=== PATIENT | female | born 1980 | race Caucasian/White ===

== ENCOUNTER → 2017-11-06 13:31 | Outpatient (CLI) | payer MEDICAID, SELFPAY ==
[2017-11-09 17:25] LABS: Neisseria gonorrhoeae, NAA Negative (Negative)
== END ==
PROVIDERS: PCP Nurse Practitioner Obstetrics & Gynecology; Visit Provider Nurse Practitioner Obstetrics & Gynecology
DX: N89.8 Other specified noninflammatory disorders of vagina (principal)
CPT/HCPCS: 87491; 87591

== ENCOUNTER → 2017-11-17 09:04 | Outpatient (CLI) | payer MEDICAID, SELFPAY | PROVIDERS: Visit Provider Nurse Practitioner Obstetrics & Gynecology | DX: A59.01 Trichomonal vulvovaginitis (principal) | CPT/HCPCS: 87491 ==

== ENCOUNTER 2017-12-03 13:48 | Emergency (ER) | payer MEDICAID, SELFPAY ==
[2017-12-03 14:07] VITALS: BP 124/88; PULSE 130; RESP 22; TEMP 37; O2SAT 99; BMI 46.5
[2017-12-03 14:20] VITALS: BP 146/112; PULSE 122; RESP 20; TEMP 36.7; O2SAT 98; BMI 46.5
--- NOTE | 2017-12-03 14:25 | XR_ITS ---
XR chest 2V COMPARISON: PA and lateral chest 12/04/2014 HISTORY: Shortness of breath TECHNIQUE: PA and lateral chest FINDINGS: The lung felton are well expanded and appear clear of infiltrate. The cardiac silhouette and vascularity are normal. There is no pleural fluid. IMPRESSION: Negative chest
--- NOTE | 2017-12-03 14:37 | PC.NURSE ---
TO RADIOLOGY PER W/C.
[2017-12-03 14:41] LABS: Basophils % 0.4 % (0.1-2.0); Eosinophils # 0.2 K/mm3 (0.0-0.4); Eosinophils % 2.1 % (0.1-12.0); Hematocrit 44.7 % (37.0-47.0); Hemoglobin 14.5 g/dL (12.2-16.2); Lymphocytes # 1.9 K/mm3 (0.7-4.5); Lymphocytes % 16.4 K/mm3 (10-50); Mean Corpuscular HGB Conc 32.4 g/dL (31.8-35.4); Mean Corpuscular Hemoglobin 29.8 pg (27.0-31.2); Mean Platelet Volume 7.8 fl (7.4-10.4); Monocytes # 0.4 K/mm3 (0.1-1.0); Monocytes % 3.7 % (1.7-9.3); Neutrophils # 8.8 K/mm3 (1.8-7.8); Neutrophils % 77.5 % (37.0-80.0); Platelet Count 287 K/mm3 (142-424); Red Blood Count 4.86 M/mm3 (4.20-5.40); Red Cell Distribution Width 12.7 % (11.5-17.5); White Blood Count 11.3 K/mm3 (4.8-10.8)
[2017-12-03 14:56] LABS: Alanine Aminotransferase 31 U/L (12-78); Albumin Level 3.5 gm/dL (3.4-5.0); Albumin/Globulin Ratio 0.7 (1.1-1.8); Alkaline Phosphatase 63 U/L (46-116); Anion Gap 14.9 mEq/L (5-15); Aspartate Amino Transferase 14 U/L (15-37); Bilirubin,Total 0.2 mg/dL (0.2-1.0); Blood Urea Nitrogen 5 mg/dL (7-18); Calcium 9.2 mg/dL (8.5-10.1); Carbon Dioxide 27 mmol/L (21.0-32.0); Chloride 103 mmol/L (98-107); Creatinine Clearance Estimated 103 mL/min (0-300); Creatinine,Serum 0.67 mg/dL (0.55-1.02); Estimated Glomerular Filt Rate 99 ml/min (>60); GFR (African American) 120 ML/MIN (>60); Glucose 171 mg/dL (74-106); Potassium 3.9 mmoL/L (3.5-5.1); Sodium 141 mmol/L (136-145); Total Protein,Serum 8.5 gm/dL (6.4-8.2)
[2017-12-03 15:33] LABS: CKMB Relative Index 1.4 U/L (0-4.0); Creatine Kinase 63 U/L (26-192); Creatine Kinase MB 0.9 mg/ml (0.0-3.6); Troponin I < 0.02 ng/ml (0.00-0.06)
[2017-12-03 15:48] VITALS: BP 122/88; PULSE 90; RESP 20; O2SAT 98
--- NOTE | 2017-12-03 15:55 | HMH.EDSOB ---
ED Disposition Clinical Impression: Palpitations Disposition: Home, Self-Care Condition on Discharge: Good Instructions: DI for Palpitations Additional Instructions: Please take the metoprolol as instructed, 100 mg daily. Follow-up with agricultural engineer, Dr. John Monteiro, within the next 2 days. Referrals: Pascual Lynch MD [Primary Care Provider] - Jose E Monteiro MD [Staff Physician] - Time of Disposition: 15:55 - Critical Care Critical Care Time: No Attestation: On 12/03/17, the high probability of a clinically significant, sudden or life threatening deterioration of the following system(s) required my full and direct attention, intervention and personal management. The time I documented below is in addition to time spent performing reported procedures but includes the following listed in this critical care notation. Medical Decision Making - Medical Records Medical records reviewed: Yes: I reviewed the patient's medical records. - Felipe Inquiry Pt receiving controlled substance: No Vital Signs: 12/03/17 14:07 12/03/17 14:20 12/03/17 15:48 Temperature 98.6 F 98.1 F Temperature Source Temporal Artery Scan Oral Pulse Rate Pulse Rate [Right] 130 H 122 H 90 Respiratory Rate 22 20 20 Blood Pressure Blood Pressure [Right Arm] 124/88 146/112 122/88 Blood Pressure Mean [Right Arm] 100 123 99 Blood Pressure Source Blood Pressure Source [Right Arm] Automatic Cuff Automatic Cuff Automatic Cuff Blood Pressure Position Blood Pressure Position [Right Arm] Sitting Sitting Sitting 02 Sat by Pulse Oximetry 99 98 98 Oxygen Delivery Method Room Air Room Air Room Air 12/03/17 16:32 Temperature 98.6 F Temperature Source Oral Pulse Rate 88 Pulse Rate [Right] Respiratory Rate 18 Blood Pressure 153/88 Blood Pressure [Right Arm] Blood Pressure Mean [Right Arm] Blood Pressure Source Automatic Cuff Blood Pressure Source [Right Arm] Blood Pressure Position Sitting Blood Pressure Position [Right Arm] 02 Sat by Pulse Oximetry Oxygen Delivery Method Room Air - Lab Data Lab results reviewed: Yes: I reviewed the patient's lab results. Lab Results 12/03/17 14:30: WBC 11.3 H, RBC 4.86, Hgb 14.5, Hct 44.7, MCV 92.0, MCH 29.8, MCHC 32.4, RDW 12.7, Plt Count 287, MPV 7.8, Neut % (Auto) 77.5, Lymph % (Auto) 16.4, [facility] % (Auto) 3.7, Eos % (Auto) 2.1, Baso % (Auto) 0.4, Neut # (Auto) 8.8 H, Lymph # (Auto) 1.9, [facility] # (Auto) 0.4, Eos # (Auto) 0.2, Baso # (Auto) 0.0 12/03/17 14:30: Sodium 141, Potassium 3.9, Chloride 103, Carbon Dioxide 27, Anion Gap 14.9, BUN 5 L, Creatinine 0.67, Estimated Creat Clear 103, Estimated GFR 99, Est GFR ( Amer) 120, Glucose 171 H, Calcium 9.2, Total Bilirubin 0.2, AST 14 L, ALT 31, Alkaline Phosphatase 63, Total Protein 8.5 H, Albumin 3.5, Globulin 5.0 H, Albumin/Globulin Ratio 0.7 L 12/03/17 14:50: Total Creatine Kinase 63, CK-MB (CK-2) 0.9, CK-MB (CK-2) Rel Index 1.4, Troponin I < 0.02 Result diagrams: 12/03/17 14:30 12/03/17 14:30 Orders (Tests/Meds): ED MEDICATIONS Discontinued Medications Generic Name Dose Route Start Last Admin Trade Name Fazalq PRN Reason Stop Dose Admin Sodium Chloride 1,000 mls @ 999 mls/hr 12/03/17 14:30 12/03/17 14:32 Sod Chlor 0.9% 1000ml Bag IV 12/03/17 15:30 999 mls/hr .Q1H1M SHAGUFTA Administration Metoprolol Tartrate 1.25 mg 12/03/17 15:31 12/03/17 16:26 Metoprolol Tartrate 5mg/5ml Vial IV 12/03/17 15:32 Not Given ONCE ONE - Radiology Data #1 Image(s): Chest Image Reviewed: Yes I reviewed the patient's radiology results, Yes I reviewed the patient's radiology image Preliminary Findings: Normal/NAD - ECG Data Tracing #1 I reviewed this ECG and interpreted as documented below: ECG normal with no acute: arrhythmias, ischemia, conduction abnormalities, chamber hypertrophy Normal Sinus Rhythm: No Resp/SOB HPI - General Chief Complaint: Shortness of Breath/Dyspnea Stated Complai
[2017-12-03 16:32] VITALS: BP 153/88; PULSE 88; RESP 18; TEMP 37; O2SAT 96
== END 2017-12-03 16:34 | disposition home or self-care (01) ==
LOC: UTC 13:52 → ER 14:13
PROVIDERS: Emergency Provider Emergency Medicine; Family Provider Internal Medicine; PCP Nurse Practitioner Obstetrics & Gynecology
DX: R00.2 Palpitations (principal); J45.909 Unspecified asthma, uncomplicated; F41.8 Other specified anxiety disorders; I10 Essential (primary) hypertension
CPT/HCPCS: 71046; 80053; 82550; 82553; 84484; 85025; 93005; 96365; 99283

== ENCOUNTER → 2017-12-17 07:49 | Outpatient (CLI) | payer MEDICAID, SELFPAY ==
--- NOTE | 2017-12-17 07:53 | CA_ITS ---
PROCEDURE: 2-D M-mode and color Doppler study INDICATIONS FOR THE TEST: Chest pain X COPD Heart Murmur Tobacco SmokingEX Palpitations FatigueX Syncope Edema Hypertension Diabetes Mellitus Rheumatic Fever SOBXDOE ObesityXHyperlipidemia Family History HD Additional History TDS OBESITY PATIENT INFORMATION HEIGHT: 65 WEIGHT:279 GENDER: Female B/P:149/88 2-D/M-MODE INTERPRETATION: 2-D MEASUREMENTS OBSERVED VALUES IN CMS Right Ventricular Dimension (RVDd) 2.5 Interventricular Septum (Thickness)(IVsd) 1.1 Left Ventricular Internal Dimensions(LVIDd) 4.4 Left Ventricular Posterior Wall (Thickness)(LVPWd) 1.1 Aortic Root 3.1 Aortic Cusp Separation 2.0 Left Atrial Dimensions (LAD) 2.5 2D 1. Left atrium is normal size, left ventricle is normal size, left ventricle wall thickness is upper limit of normal, visually estimated ejection fraction 55% with no obvious regional wall motion abnormality. 2. The right atrium and right ventricle are normal size and contractility. 3. The aortic, mitral and tricuspid valvular grossly normal. 4. The pulmonic valve is poorly visualized. 5. No significant pericardial effusion noted. DOPPLER INTERROGATION: Doppler interrogation of the aortic, mitral and tricuspid valvular presence of mild mitral and tricuspid regurgitation, tricuspid and jet velocity insufficient for calculation of the right ventricular systolic pressure, diastolic parameters are normal. CONCLUSION: 1. Normal left ventricular size, preserved left ventricular systolic function, visually estimated ejection fraction 55% no obvious regional wall motion abnormality, diastolic parameters are normal. 2. Mild mitral and tricuspid regurgitation 3. No significant pericardial effusion noted.
== END ==
PROVIDERS: Family Provider Internal Medicine; PCP Internal Medicine; Visit Provider Internal Medicine
DX: R07.89 Other chest pain (principal); R00.0 Tachycardia, unspecified
CPT/HCPCS: 93017; 93306

== ENCOUNTER → 2017-12-22 12:29 | Outpatient (REF) | payer MEDICAID, SELFPAY ==
[2017-12-22 13:42] LABS: Alanine Aminotransferase 35 U/L (12-78); Albumin Level 3.6 gm/dL (3.4-5.0); Albumin/Globulin Ratio 0.9 (1.1-1.8); Alkaline Phosphatase 59 U/L (46-116); Anion Gap 14.5 mEq/L (5-15); Aspartate Amino Transferase 27 U/L (15-37); Bilirubin,Total 0.5 mg/dL (0.2-1.0); Blood Urea Nitrogen 11 mg/dL (7-18); Carbon Dioxide 26 mmol/L (21.0-32.0); Chloride 103 mmol/L (98-107); Chol/HDL Ratio 4.6 (1-3.5); Cholesterol 199 mg/dL (140-200); Creatinine,Serum 0.63 mg/dL (0.55-1.02); Estimated Glomerular Filt Rate 106 ml/min (>60); GFR (African American) 129 ML/MIN (>60); Globulin 4.1 gm/dl (1.3-3.2); Glucose 122 mg/dL (74-106); HDL Cholesterol 43 mg/dL (29-89); LDL Cholesterol 132 mg/dL (0-130); Potassium 4.5 mmoL/L (3.5-5.1); Sodium 139 mmol/L (136-145); Total Protein,Serum 7.7 gm/dL (6.4-8.2); Triglycerides 120 mg/dL (30-200); VLDL Cholesterol 24 mg/dL (0-40)
== END ==
LOC: LAB 12:29
PROVIDERS: Visit Provider Internal Medicine
DX: I10 Essential (primary) hypertension (principal); F41.9 Anxiety disorder, unspecified; K21.9 Gastro-esophageal reflux disease without esophagitis; E66.01 Morbid (severe) obesity due to excess calories; F41.0 Panic disorder [episodic paroxysmal anxiety]
CPT/HCPCS: 80053; 80061

== ENCOUNTER → 2018-01-04 08:39 | Outpatient (CLI) | payer MEDICAID, SELFPAY ==
--- NOTE | 2018-01-04 08:41 | FL_ITS ---
FL barium swallow COMPARISON: Upper GI series 06/03/2007 HISTORY: Epigastric pain and discomfort, clinical suspicion of possible hiatal hernia TECHNIQUE: Fluoroscopy while drinking barium FINDINGS: The swallowing function and esophageal motility are normal. Spot films of the cervical esophagus during the active swallowing show no abnormality. There is no hiatal hernia or reflux seen. There was delay in emptying of the lower third of the esophagus with the patient in supine position which did empty after raising the fluoroscopic table. There was no GE reflux seen during the exam. Fluoroscopic time was 2 minutes and 24 seconds. IMPRESSION: No evidence of hiatal hernia or GE reflux, somewhat decreased primary peristalsis lower third of the esophagus with the patient in supine position
== END ==
PROVIDERS: Family Provider Internal Medicine; PCP Internal Medicine; Visit Provider Internal Medicine
DX: R06.02 Shortness of breath (principal); I51.9 Heart disease, unspecified; R00.0 Tachycardia, unspecified; R07.9 Chest pain, unspecified; I10 Essential (primary) hypertension; E66.9 Obesity, unspecified
CPT/HCPCS: 74220

== ENCOUNTER → 2018-01-08 15:55 | Outpatient (CLI) | payer MEDICAID, SELFPAY ==
[2018-01-08 17:01] LABS: Anion Gap 14.9 mEq/L (5-15); Blood Urea Nitrogen 10 mg/dL (7-18); Carbon Dioxide 29 mmol/L (21.0-32.0); Chloride 99 mmol/L (98-107); Creatinine,Serum 0.64 mg/dL (0.55-1.02); Estimated Glomerular Filt Rate 104 ml/min (>60); GFR (African American) 126 ML/MIN (>60); Glucose 147 mg/dL (74-106); Potassium 3.9 mmoL/L (3.5-5.1); Sodium 139 mmol/L (136-145)
== END ==
PROVIDERS: Visit Provider Internal Medicine
DX: I10 Essential (primary) hypertension (principal)
CPT/HCPCS: 36415; 80048

== ENCOUNTER → 2018-08-16 09:32 | Outpatient (CLI) | payer MEDICAID, SELFPAY ==
[2018-08-16 10:10] LABS: Basophils # 0.1 K/mm3 (0-0.2); Basophils % 0.5 % (0.1-2.0); Eosinophils # 0.1 K/mm3 (0.0-0.4); Eosinophils % 0.7 % (0.1-12.0); Hematocrit 40.6 % (37.0-47.0); Hemoglobin 12.9 g/dL (12.2-16.2); Lymphocytes # 2.2 K/mm3 (0.7-4.5); Lymphocytes % 13.2 % (10-50); Mean Corpuscular HGB Conc 31.7 g/dL (31.8-35.4); Mean Corpuscular Hemoglobin 29.1 pg (27.0-31.2); Mean Corpuscular Volume 91.9 fl (81-99); Mean Platelet Volume 7.3 fl (7.4-10.4); Monocytes # 0.6 K/mm3 (0.1-1.0); Monocytes % 3.5 % (1.7-9.3); Neutrophils # 13.4 K/mm3 (1.8-7.8); Neutrophils % 82.1 % (37.0-80.0); Platelet Count 291 K/mm3 (142-424); Red Blood Count 4.42 M/mm3 (4.20-5.40); Red Cell Distribution Width 13.1 % (11.5-17.5); White Blood Count 16.3 K/mm3 (4.8-10.8)
[2018-08-16 10:37] LABS: MANUAL DIFFERENTIAL MANUAL DIFFERENTIAL (MANUAL DIFF)
[2018-08-16 11:16] LABS: Eosinophils % 2 % (0-3); Lymphocytes % 14 % (10-50); Monocytes % 4 % (2-9); Neutrophils % 80 % (42-76); Platelet Estimate Normal; RBC Morphology Normal; Total Cells Counted 100
[2018-08-16 11:26] LABS: Alanine Aminotransferase 18 U/L (12-78); Albumin Level 3.2 gm/dL (3.4-5.0); Albumin/Globulin Ratio 0.8 (1.1-1.8); Alkaline Phosphatase 62 U/L (46-116); Anion Gap 14.6 mEq/L (5-15); Aspartate Amino Transferase 7 U/L (15-37); Bilirubin,Total 0.4 mg/dL (0.2-1.0); Blood Urea Nitrogen 10 mg/dL (7-18); Calcium 8.5 mg/dL (8.5-10.1); Carbon Dioxide 24 mmol/L (21.0-32.0); Chloride 103 mmol/L (98-107); Creatinine,Serum 0.63 mg/dL (0.55-1.02); Estimated Glomerular Filt Rate 106 ml/min (>60); GFR (African American) 128 ML/MIN (>60); Globulin 4.2 gm/dl (1.3-3.2); Glucose 134 mg/dL (74-106); Potassium 4.6 mmoL/L (3.5-5.1); Sodium 137 mmol/L (136-145); Thyroid Stimulating Hormone 3.62 uIU/ml (0.358-3.740); Total Protein,Serum 7.4 gm/dL (6.4-8.2)
== END ==
PROVIDERS: Visit Provider Internal Medicine
DX: Z00.01 Encounter for general adult medical examination with abnormal findings (principal); K21.9 Gastro-esophageal reflux disease without esophagitis; F41.9 Anxiety disorder, unspecified; I10 Essential (primary) hypertension
CPT/HCPCS: 36415; 80053; 84443; 85007; 85025

== ENCOUNTER → 2018-11-15 15:53 | Outpatient (CLI) | payer BC, SELFPAY | PROVIDERS: PCP Internal Medicine; Visit Provider Internal Medicine | DX: G47.10 Hypersomnia, unspecified (principal); G47.30 Sleep apnea, unspecified; I10 Essential (primary) hypertension; R06.83 Snoring; E66.9 Obesity, unspecified | CPT/HCPCS: 95806 ==

== ENCOUNTER → 2019-02-07 10:34 | Outpatient (CLI) | payer BC, SELFPAY ==
[2019-02-07 11:49] LABS: Basophils # 0.1 K/mm3 (0-0.2); Basophils % 0.5 % (0.1-2.0); Eosinophils # 0.1 K/mm3 (0.0-0.4); Eosinophils % 0.8 % (0.1-12.0); Hematocrit 39.7 % (37.0-47.0); Hemoglobin 13.3 g/dL (12.2-16.2); Lymphocytes # 2.4 K/mm3 (0.7-4.5); Lymphocytes % 19.9 % (10-50); Mean Corpuscular HGB Conc 33.4 g/dL (31.8-35.4); Mean Corpuscular Volume 89.6 fl (81-99); Mean Platelet Volume 7.5 fl (7.4-10.4); Monocytes # 0.4 K/mm3 (0.1-1.0); Monocytes % 3.7 % (1.7-9.3); Neutrophils # 8.9 K/mm3 (1.8-7.8); Neutrophils % 75.1 % (37.0-80.0); Platelet Count 274 K/mm3 (142-424); Red Blood Count 4.44 M/mm3 (4.20-5.40); Red Cell Distribution Width 12.5 % (11.5-17.5); White Blood Count 11.9 K/mm3 (4.8-10.8)
[2019-02-07 12:39] LABS: Alanine Aminotransferase 24 U/L (12-78); Albumin Level 3.5 gm/dL (3.4-5.0); Albumin/Globulin Ratio 0.9 (1.1-1.8); Alkaline Phosphatase 65 U/L (46-116); Anion Gap 17.3 mEq/L (5-15); Aspartate Amino Transferase 12 U/L (15-37); Bilirubin,Total 0.7 mg/dL (0.2-1.0); Blood Urea Nitrogen 9 mg/dL (7-18); Carbon Dioxide 25 mmol/L (21.0-32.0); Chloride 101 mmol/L (98-107); Cholesterol 196 mg/dL (140-200); Creatinine,Serum 0.58 mg/dL (0.55-1.02); Estimated Glomerular Filt Rate 116 ml/min (>60); GFR (African American) 141 ML/MIN (>60); Glucose 118 mg/dL (74-106); HDL Cholesterol 39 mg/dL (29-89); LDL Cholesterol 126 mg/dL (0-130); Potassium 4.3 mmoL/L (3.5-5.1); Sodium 139 mmol/L (136-145); Total Protein,Serum 7.5 gm/dL (6.4-8.2); Triglycerides 155 mg/dL (30-200); VLDL Cholesterol 31 mg/dL (0-40)
== END ==
PROVIDERS: Visit Provider Internal Medicine
DX: F41.9 Anxiety disorder, unspecified (principal); I10 Essential (primary) hypertension; G47.10 Hypersomnia, unspecified; E66.01 Morbid (severe) obesity due to excess calories
CPT/HCPCS: 36415; 80053; 80061; 83036; 85025

== ENCOUNTER → 2020-02-10 15:58 | Outpatient (CLI) | payer BC, SELFPAY ==
--- NOTE | 2020-02-10 16:13 | ECG_ITS ---
APPROVED REPORT Exam: Resting ECG HR:89 bpm ECG Measurements Heart Rate 89 AXES IA 130 P 56 QRSd 76 QRS -11 QT 344 T 47 QTc 418 <Conclusion> Normal sinus rhythm Incomplete RBBB Otherwise a normal EKG Electronically signed by : Ha Deras, 02/10/2020 16:24:08
== END ==
PROVIDERS: PCP Internal Medicine; Visit Provider Internal Medicine
DX: R00.2 Palpitations (principal); I10 Essential (primary) hypertension
CPT/HCPCS: 93005

== ENCOUNTER → 2020-07-31 13:56 | Outpatient (CLI) | payer BC, MEDICAID, SELFPAY ==
[2020-07-31 14:34] LABS: Basophils # 0.1 K/mm3 (0-0.2); Basophils % 0.3 % (0.1-2.0); Eosinophils # 0.2 K/mm3 (0.0-0.4); Eosinophils % 0.8 % (0.1-12.0); Hematocrit 45.6 % (37.0-47.0); Hemoglobin 14.7 g/dL (12.2-16.2); Lymphocytes # 2.3 K/mm3 (0.7-4.5); Lymphocytes % 10.2 % (10-50); Mean Corpuscular HGB Conc 32.3 g/dL (31.8-35.4); Mean Corpuscular Hemoglobin 29.9 pg (27.0-31.2); Mean Corpuscular Volume 92.5 fl (81-99); Mean Platelet Volume 8.1 fl (7.4-10.4); Monocytes # 0.7 K/mm3 (0.1-1.0); Monocytes % 3.1 % (1.7-9.3); Neutrophils # 19.6 K/mm3 (1.8-7.8); Neutrophils % 85.7 % (37.0-80.0); Platelet Count 304 K/mm3 (142-424); Red Blood Count 4.93 M/mm3 (4.20-5.40); Red Cell Distribution Width 13.2 % (11.5-17.5); White Blood Count 22.9 K/mm3 (4.8-10.8)
[2020-07-31 14:44] LABS: HCG Qualitative, Serum Negative (Negative)
[2020-07-31 14:46] LABS: Chloride 103 mmol/L (98-107); Sodium 139 mmol/L (136-145)
[2020-07-31 14:47] LABS: Potassium 4.4 mmoL/L (3.5-5.1)
[2020-07-31 14:50] LABS: Anion Gap 14.4 mEq/L (5-15); Blood Urea Nitrogen 17 mg/dl (7-17); Calcium 9.1 mg/dl (8.4-10.2); Carbon Dioxide 26 mmol/L (22.0-30.0); Estimated Glomerular Filt Rate 137 ml/min (>60); GFR (African American) 165 ML/MIN (>60); Glucose 137 mg/dl (74-100); MANUAL DIFFERENTIAL MANUAL DIFFERENTIAL (MANUAL DIFF)
[2020-07-31 15:58] LABS: Coronavirus 19 IgG Antibody Negative (Negative); Coronavirus 19 IgM Antibody Negative (Negative)
[2020-07-31 17:25] LABS: Lymphocytes % 15 % (10-50); Monocytes % 8 % (2-9); Neutrophils % 77 % (42-76); Platelet Estimate Normal; RBC Morphology Normal; Total Cells Counted 100
== END ==
PROVIDERS: Visit Provider Nurse Practitioner Obstetrics & Gynecology
DX: Z01.818 Encounter for other preprocedural examination (principal); Z30.09 Encounter for other general counseling and advice on contraception
CPT/HCPCS: 36415; 80048; 84703; 85007; 85025; 86328

== ENCOUNTER 2020-08-02 06:09 | Day surgery (SDC) | payer BC, MEDICAID, SELFPAY ==
[2020-07-29 13:50] VITALS: BMI 43.1
[2020-08-02 06:27] VITALS: BP 149/97; PULSE 85; RESP 18; TEMP 36.2; O2SAT 96
[2020-08-02 06:42] LABS: Basophils # 0.1 K/mm3 (0-0.2); Basophils % 0.5 % (0.1-2.0); Eosinophils # 0.3 K/mm3 (0.0-0.4); Eosinophils % 1.1 % (0.1-12.0); Hematocrit 44.4 % (37.0-47.0); Hemoglobin 14.6 g/dL (12.2-16.2); Lymphocytes # 4.3 K/mm3 (0.7-4.5); Mean Corpuscular HGB Conc 32.8 g/dL (31.8-35.4); Mean Corpuscular Hemoglobin 30.2 pg (27.0-31.2); Mean Platelet Volume 8.2 fl (7.4-10.4); Monocytes # 0.9 K/mm3 (0.1-1.0); Monocytes % 3.8 % (1.7-9.3); Neutrophils # 18.3 K/mm3 (1.8-7.8); Neutrophils % 76.6 % (37.0-80.0); Platelet Count 352 K/mm3 (142-424); Red Blood Count 4.83 M/mm3 (4.20-5.40); Red Cell Distribution Width 13.2 % (11.5-17.5); White Blood Count 23.9 K/mm3 (4.8-10.8)
[2020-08-02 06:49] LABS: MANUAL DIFFERENTIAL MANUAL DIFFERENTIAL (MANUAL DIFF)
--- NOTE | 2020-08-02 07:37 | SUR.PREOP ---
Procedure cancelled/postponed per Dr Lynch, elevated WBC.
[2020-08-02 08:00] LABS: Lymphocytes % 16 % (10-50); Monocytes % 3 % (2-9); Neutrophils % 81 % (42-76); Platelet Estimate Normal; RBC Morphology Normal; Total Cells Counted 100
--- NOTE | 2020-08-02 08:06 | P.PN_ITS ---
Internal Medicine - PN: Subj *Date: 08/02/20 *Time: 08:06 Interval history: She came here today for a bilateral salpingectomy but she has an increased white count. 48 hours ago it was 20,000 and today it is 23,000. She says she has a sinus infection. As result of that we are going to reschedule her surgery and cancel surgery today. She says she is on steroids. Exam Vital signs and Labs for Last 24 Hours: Temp Pulse Resp BP Pulse Ox 97.2 F L 85 18 149/97 H 96 08/02/20 06:27 08/02/20 06:27 08/02/20 06:27 08/02/20 06:27 08/02/20 06:27 Laboratory Results - last 24 hr 08/02/20 06:30: WBC 23.9 H*, RBC 4.83, Hgb 14.6, Hct 44.4, MCV 92.0, MCH 30.2, MCHC 32.8, RDW 13.2, Plt Count 352, MPV 8.2, Neut % (Auto) 76.6, Lymph % (Auto) 18.0, [place] % (Auto) 3.8, Eos % (Auto) 1.1, Baso % (Auto) 0.5, Neut # (Auto) 18.3 H, Lymph # (Auto) 4.3, [place] # (Auto) 0.9, Eos # (Auto) 0.3, Baso # (Auto) 0.1, Total Counted 100, Neutrophils % (Manual) 81 H, Lymphocytes % (Manual) 16, Monocytes % (Manual) 3, Platelet Estimate Normal, RBC Morphology Normal I & O for Last 24 hours: Intake & Output 07/30/20 07/31/20 08/01/20 08/02/20 11:59 11:59 11:59 11:59 Weight 259 lb - Constitutional no acute distress - *Routine HEENT Exam Head: Present: normocephalic Eye: Present: EOMI, PERRL ENT: Present: mucous membranes moist Assessment and Plan (1) Sinus infection Status: Acute Category: Medical Code(s): J32.9 - Chronic sinusitis, unspecified - Assessment and plan all Dx Assessment and Plan for all problems:: Since her white count is quite elevated we will go ahead and cancel her surgery for today. We will plan to reschedule her in a couple of weeks. She says she does have a sinus infection. I will also call her in a Z-Thaddeus as well.
== END 2020-08-02 07:37 ==
PROVIDERS: PCP Internal Medicine; Visit Provider Nurse Practitioner Obstetrics & Gynecology
DX: Z30.2 Encounter for sterilization (principal); J32.9 Chronic sinusitis, unspecified; Z53.8 Procedure and treatment not carried out for other reasons
CPT/HCPCS: 58700; 85007; 85025

== ENCOUNTER → 2020-08-05 14:04 | Outpatient (CLI) | payer BC, MEDICAID, SELFPAY ==
[2020-08-05 15:15] LABS: Basophils # 0.1 K/mm3 (0-0.2); Basophils % 0.4 % (0.1-2.0); Eosinophils # 0.2 K/mm3 (0.0-0.4); Eosinophils % 1.1 % (0.1-12.0); Hematocrit 43.4 % (37.0-47.0); Hemoglobin 14.4 g/dL (12.2-16.2); Lymphocytes # 2.7 K/mm3 (0.7-4.5); Lymphocytes % 14.8 % (10-50); Mean Corpuscular HGB Conc 33.1 g/dL (31.8-35.4); Mean Corpuscular Hemoglobin 30.8 pg (27.0-31.2); Mean Corpuscular Volume 93.1 fl (81-99); Monocytes # 0.5 K/mm3 (0.1-1.0); Monocytes % 2.7 % (1.7-9.3); Neutrophils # 14.7 K/mm3 (1.8-7.8); Neutrophils % 80.9 % (37.0-80.0); Platelet Count 299 K/mm3 (142-424); Red Blood Count 4.67 M/mm3 (4.20-5.40); Red Cell Distribution Width 13.3 % (11.5-17.5); White Blood Count 18.2 K/mm3 (4.8-10.8)
[2020-08-05 15:17] LABS: MANUAL DIFFERENTIAL MANUAL DIFFERENTIAL (MANUAL DIFF)
[2020-08-05 18:29] LABS: Eosinophils % 2 % (0-3); Lymphocytes % 20 % (10-50); Monocytes % 4 % (2-9); Neutrophils % 74 % (42-76); Platelet Estimate Normal; RBC Morphology Normal; Total Cells Counted 100
== END ==
PROVIDERS: Visit Provider Internal Medicine
DX: D72.829 Elevated white blood cell count, unspecified (principal)
CPT/HCPCS: 36415; 85007; 85025

== ENCOUNTER → 2020-08-11 08:55 | Outpatient (CLI) | payer BC, MEDICAID, SELFPAY ==
[2020-08-11 09:39] LABS: Basophils # 0.2 K/mm3 (0-0.2); Basophils % 1.3 % (0.1-2.0); Eosinophils # 0.1 K/mm3 (0.0-0.4); Eosinophils % 0.8 % (0.1-12.0); Hematocrit 44.1 % (37.0-47.0); Hemoglobin 14.6 g/dL (12.2-16.2); Lymphocytes # 1.4 K/mm3 (0.7-4.5); Lymphocytes % 11.1 % (10-50); Mean Corpuscular HGB Conc 33.1 g/dL (31.8-35.4); Mean Corpuscular Volume 93.7 fl (81-99); Mean Platelet Volume 9.3 fl (7.4-10.4); Monocytes # 0.5 K/mm3 (0.1-1.0); Monocytes % 4.4 % (1.7-9.3); Neutrophils # 10.2 K/mm3 (1.8-7.8); Neutrophils % 82.5 % (37.0-80.0); Platelet Count 182 K/mm3 (142-424); Red Blood Count 4.71 M/mm3 (4.20-5.40); Red Cell Distribution Width 14.3 % (11.5-17.5); White Blood Count 12.3 K/mm3 (4.8-10.8)
== END ==
PROVIDERS: Visit Provider Internal Medicine
DX: D72.829 Elevated white blood cell count, unspecified (principal)
CPT/HCPCS: 36415; 85025

== ENCOUNTER → 2020-08-18 16:22 | Outpatient (CLI) | payer BC, MEDICAID, SELFPAY ==
[2020-08-18 16:48] LABS: Basophils # 0.1 K/mm3 (0-0.2); Basophils % 0.7 % (0.1-2.0); Eosinophils # 0.2 K/mm3 (0.0-0.4); Eosinophils % 1.3 % (0.1-12.0); Hematocrit 43.4 % (37.0-47.0); Hemoglobin 14.4 g/dL (12.2-16.2); Lymphocytes # 2.5 K/mm3 (0.7-4.5); Mean Corpuscular HGB Conc 33.2 g/dL (31.8-35.4); Mean Corpuscular Hemoglobin 30.1 pg (27.0-31.2); Mean Corpuscular Volume 90.7 fl (81-99); Mean Platelet Volume 8.3 fl (7.4-10.4); Monocytes # 0.4 K/mm3 (0.1-1.0); Monocytes % 3.1 % (1.7-9.3); Neutrophils # 10.5 K/mm3 (1.8-7.8); Neutrophils % 76.9 % (37.0-80.0); Platelet Count 265 K/mm3 (142-424); Red Blood Count 4.79 M/mm3 (4.20-5.40); White Blood Count 13.6 K/mm3 (4.8-10.8)
== END ==
PROVIDERS: Visit Provider Internal Medicine
DX: D72.819 Decreased white blood cell count, unspecified (principal)
CPT/HCPCS: 36415; 85025

== ENCOUNTER → 2020-08-20 13:08 | Outpatient (CLI) | payer BC, MEDICAID, SELFPAY ==
[2020-08-20 14:35] LABS: Basophils # 0.1 K/mm3 (0-0.2); Basophils % 0.3 % (0.1-2.0); Eosinophils # 0.1 K/mm3 (0.0-0.4); Eosinophils % 0.7 % (0.1-12.0); Hemoglobin 14.4 g/dL (12.2-16.2); Lymphocytes # 2.2 K/mm3 (0.7-4.5); Lymphocytes % 15.4 % (10-50); Mean Corpuscular HGB Conc 32.7 g/dL (31.8-35.4); Mean Corpuscular Volume 91.9 fl (81-99); Mean Platelet Volume 8.4 fl (7.4-10.4); Monocytes # 0.4 K/mm3 (0.1-1.0); Monocytes % 2.9 % (1.7-9.3); Neutrophils # 11.7 K/mm3 (1.8-7.8); Neutrophils % 80.7 % (37.0-80.0); Platelet Count 302 K/mm3 (142-424); Red Blood Count 4.79 M/mm3 (4.20-5.40); Red Cell Distribution Width 13.2 % (11.5-17.5); White Blood Count 14.6 K/mm3 (4.8-10.8)
[2020-08-20 14:59] LABS: Chloride 102 mmol/L (98-107)
[2020-08-20 15:00] LABS: Potassium 4.2 mmoL/L (3.5-5.1); Sodium 136 mmol/L (136-145)
[2020-08-20 15:02] LABS: Blood Urea Nitrogen 10 mg/dl (7-17); Estimated Glomerular Filt Rate 137 ml/min (>60); GFR (African American) 165 ML/MIN (>60)
[2020-08-20 15:03] LABS: Anion Gap 12.2 mEq/L (5-15); Calcium 9.6 mg/dl (8.4-10.2); Carbon Dioxide 26 mmol/L (22.0-30.0); Glucose 163 mg/dl (74-100)
[2020-08-20 15:20] LABS: Coronavirus 19 IgG Antibody Negative (Negative); Coronavirus 19 IgM Antibody Negative (Negative)
[2020-08-20 16:49] LABS: HCG Qualitative, Serum Negative (Negative)
== END ==
PROVIDERS: Visit Provider Nurse Practitioner Obstetrics & Gynecology
DX: Z01.818 Encounter for other preprocedural examination (principal)
CPT/HCPCS: 36415; 80048; 84703; 85025; 86328

== ENCOUNTER 2020-08-23 09:41 | Day surgery (SDC) | payer BC, MEDICAID, SELFPAY ==
[2020-08-20 14:02] VITALS: BMI 43.4
[2020-08-23] VITALS (12 sets, daily range): BP systolic 152–201; BP diastolic 85–107; PULSE 83–105; RESP 12–23; TEMP 36.2–36.4; O2SAT 92–98
--- NOTE | 2020-08-23 11:12 | P.PN_ITS ---
[facility] Anesthesia Checklist - Patient Identification Patient Identification: Arm Band - Structural Data Admitted From: Home Planned Operative Procedure/s: laparoscopic bilateral tubal ligation Consent for Planned Operative Procedure(s) Verified: Yes Verified Documents: Surgical Consent, History and Physical - NPO Status Verified Time NPO: 00:00 - Additional verifications Anesthesia Reactions: No Hx Blood Transfusions: No Blood Transfusion Reaction: No - Airway Assessment C-Spine Mobility Assessed: Yes (mp2) TMJ Mobility Assessed: Yes Dentition: Good Dentition - Neurological Assessment Level of Consciousness: Awake, Alert - Anesthesia Plan Anesthesia Risk discussed: Yes Anesthesia Plan: Verified ASA Class: III Anesthesia Type: General [facility] History I have reviewed the patient's past medical history: Yes Medical History: Reports:: Anxiety, Asthma, Chronic Obstructive Pulmonary Disease (COPD), Depression, Gall Bladder Disease, Hypertension, Lung Disease (germaine-no cpap) Denies:: Cancer, Diabetes Mellitus Type 1, Diabetes Mellitus Type 2, Internal Pacemaker, MRSA, Seizures *Have you ever received a pneumonia vaccine?: No *Have you received a flu vaccine this season?: No Other Medical History: Denies: Blood Transfusion Reaction Anesthesia experience/problems:: nac Laterality Cases: Bilateral: Other Other Surgeries: Yes: Cholecystectomy, . No: Pacemaker Amputation: No Fractures: No - *Social History Smoking Status: Current every day smoker Tobacco Type: cigarettes # Packs/Day (cigarettes): 1 Alcohol Intake: never Alcohol Intake Frequency:: other Substance Use Type: marijuana *Occupational Status:: employed Housing: house Household Members: family *Travel in the last 8 weeks: None - Psychiatric History Pschychiatric History:: Reports:: Anxiety, Depression Family Hx:: Cancer, Diabetes, Alcoholism
--- NOTE | 2020-08-23 12:31 | HMH.OPNOTE ---
Date of procedure: 08/23/20 Pre-op Diagnosis:: Desire for sterilization, removal of IUD Post-op Diagnosis:: Desire for sterilization, removal of IUD Procedure performed:: Laparoscopic bilateral salpingectomy, hysteroscopy, removal of IUD Surgeon:: Pascual Lynch MD PSYCHIATRIC CLINICIAN:: Alex Rucker Anesthesia: GETA Estimated blood loss (mL): 50 Clinical Note:: She is a 40-year-old 1 now para 1 who expressed desire for sterilization. She also wanted her Mirena IUD removed at the time of surgery as well. The risks and benefits as well as irreversibility of bilateral salpingectomy were discussed with the patient prior to surgery. Operative findings:: She had a normal-appearing pelvis with a slightly bulky uterus. Ovaries appeared normal. Tubes appeared normal. The IUD strings were not present and I elected perform a hysteroscopy to see the IUD. The IUD was in the correct position. The strings were completely inside the endometrial cavity. Operative note:: She was taken to the operating room where general anesthesia was found be adequate. She was prepped and draped in normal sterile fashion in the semilithotomy position. I attempted to remove her Mirena IUD and I did not see it. I tried multiple times and was not able to grasp the IUD. The strings were not present. I elected to wait until the end of the case to do a hysteroscopy. A weighted speculum was placed in the vagina and the anterior lip of the cervix was grasped with a tenaculum. I then inserted a Sofia uterine manipulator into the cervical os. The balloon was then insufflated. I changed gloves and injected 10 cc of 0.5% ropivacaine around her umbilicus and made a small incision within the umbilicus. I inserted a Veress needle into the abdominal cavity. The peritoneal cavity was then insufflated with carbon dioxide gas to a pressure of 20 mmHg. I then inserted a 5 millimeter trocar under direct vision. I injected through and through the pubic hairline, made a small incision here and inserted an 8 mm trocar under direct vision. I identified the inferior epigastric artery on the left side, went lateral to these and injected through and through. I then placed a 5 mm trocar here under direct vision. The pelvis and upper abdomen were then inspected and the findings were as previously dictated. I grasped the right tube at the cornua and using harmonic scalpel on coagulation mode I cut through the tube. I then grasped the distal tube and using harmonic scalpel cut along the mesosalpinx. The tube was removed through 8 mm trocar site. This was similarly performed on the patient's left side. She had a small amount of bleeding around the left ovary and I placed a large piece of Surgicel over this after rinsing the pelvis with saline. I then injected 30 cc of 0.5% ropivacaine into the pelvis. After assuring hemostasis the gas was let out of the abdomen and hemostasis was once again assured. The abdomen was then reinsufflated. The secondary trochars were removed under direct vision. The gas was let out her abdomen. The primary trocar was then removed. The 8 mm trocar site was closed deeply with 2-0 Vicryl suture followed by subcuticular 4-0 Monocryl suture. The 5 mm trocar sites were closed with subcuticular 4-0 Monocryl. Sterile dressings were applied. The patient was then placed in the lithotomy position a weighted speculum is placed in the vagina. The anterior lip of the cervix was grasped and Carson dilators used to dilate the cervix to approximately 5 mm. I then inserted a hysteroscope with saline and was able to visualize the IUD. Initially it did not look like there was a string on the IUD. I dilated the cervix to approximately 9 mm and was able to finally remove the IUD with a sponge forcep. The strings were attached to the IUD but they were backwards towards the top of the IUD. The patient tolerated the procedure well and was taken to the recovery room in excellent condit
--- NOTE | 2020-08-23 12:48 | HMH.ANESI ---
[facility] Anesthesia Record Part I Intake, IV Amount: 1,500 Estimated blood loss (mL): 0 Urine output (mL): 0 Blood Pressure: 196/101 SaO2: 92 Pulse Rate: 104 Respiratory Rate: 12 Temperature: 97.5 F Patient is:: Awake, Stable Stable to PACU at:: 12:45
--- NOTE | 2020-08-23 22:25 | HMH.ANESII ---
[facility] Anesthesia Record Part II Discharge Time: 13:14 Destination: Surgical Day Care (OP Surgery) PACU nurse assessment reviewed?: Yes Patient Condition:: Good Anesthesia Complications:: None Swallowing reflex intact?: Yes Cyanosis?: No Blood Pressure: 172/98 Pulse Rate: 83 Temperature: 97.5 F Mental Status: Alert & Oriented Pain level:: 3 Nausea and/or vomitting:: None Intake, IV Amount: 0
== END 2020-08-23 13:58 | disposition home or self-care (01) ==
LOC: OR 09:43
PROVIDERS: PCP Internal Medicine; Visit Provider Nurse Practitioner Obstetrics & Gynecology
PROC: (CPT 58661; principal; 2020-08-23 11:15)
DX: Z30.2 Encounter for sterilization (principal); J44.9 Chronic obstructive pulmonary disease, unspecified; F41.9 Anxiety disorder, unspecified; F32.9 Major depressive disorder, single episode, unspecified; I10 Essential (primary) hypertension; G47.33 Obstructive sleep apnea (adult) (pediatric); Z90.49 Acquired absence of other specified parts of digestive tract; Z72.0 Tobacco use; Z79.899 Other long term (current) drug therapy
CPT/HCPCS: 58661; 96374; J2405; J2710

== ENCOUNTER 2020-09-20 16:04 | Emergency (ER) | payer BC, OTHER, SELFPAY ==
[2020-09-20 17:15] VITALS: BP 145/89; PULSE 82; RESP 18; TEMP 36.6; O2SAT 99; BMI 44.6
--- NOTE | 2020-09-20 17:31 | HMH.EDUTC ---
[facility] Disposition Clinical Impression: Encounter for laboratory testing for COVID-19 virus Disposition: Home, Self-Care Condition on Discharge: Good Instructions: DI for COVID-19 (Suspected or Confirmed ), Coronavirus Disease 2019, Preventing the Spread of Coronavirus Discharge Instructions Additional Instructions: *Monitor Temp, Over the counter Motrin or Tylenol as directed/as needed Tylenol every 4 hours and Motrin every 6 hours (as long as your family doctor has told you that you can take it) for fever or pain. and straight to ER if unable to lower temp less than 101.0 after medication given Follow up IMMEDIATELY for new or worsening symptoms or no Noticeable improvement over the next 48-72 hours. 911 for difficulty breathing or swallowing You were tested for today for COVID19 your test result should be back in the next 24-48 hours, you may call to the [facility] to see if your test results are back in the next 48 hours [phone] [facility] hours are 9am-9pm You was given a handout with instructions for Self Quarantine and Self isolation for while you wait on test results and what to do if they are positive If you are positive the Health Dept will be contacting you also Referrals: Ha Deras [Primary Care Provider] - As needed Forms: Work/School Release Time of Disposition: 17:34 Medical Decision Making - Felipe Inquiry Pt receiving controlled substance: No Felipe was queried for this patient: No Vital Signs: 09/20/20 17:15 Temperature 97.9 F Temperature Source Oral Pulse Rate [Left Brachial] 82 Respiratory Rate 18 Blood Pressure [Right Arm] 145/89 H Blood Pressure Mean [Right Arm] 107 Blood Pressure Source [Right Arm] Automatic Cuff Blood Pressure Position [Right Arm] Sitting 02 Sat by Pulse Oximetry 99 Oxygen Delivery Method Room Air Orders (Tests/Meds): ORDERS Category Date Time Status Covid-19 Nasal PCR ([facility]) Routine Lab 09/20/20 17:14 Ordered [facility] HPI - General Stated complaint: covid test Time Seen by Provider: 09/20/20 17:31 Mode of Arrival: Ambulatory Source of Information: Patient Limitations: No Limitations Description of Symptoms (Recalled from Triage Doc. by RN): COVID TEST D/T EXPOSURE; DENIES SYMPTOMS HEENT Symptoms (Recalled from RN notes): No Resp Symptoms (Recalled from RN notes): No Skin Symptoms (Recalled from RN notes): No MS Symptoms (Recalled from RN notes): No Functional Status (Recalled from RN notes): WNL - History of Present Illness Provider Complaint: Patient state that her boss notified her that she has been exposed to someone at work that recently tested positive for COVID State that she is not having any symptoms but wanted to get tested - Related Data Home Medications Medication Instructions Recorded Confirmed albuterol sulfate 90 mcg/actuation 2 puff INHALATION Q4-6H PRN 11/05/17 09/06/20 aerosol inhaler metoprolol tartrate 100 mg tablet 200 mg PO BID 11/05/17 09/06/20 lorazepam 0.5 mg tablet 1 mg PO DAILY tab 12/05/17 09/06/20 duloxetine 60 mg capsule,delayed 60 mg PO DAILY cap 06/30/20 09/06/20 release Fluticasone/Vilanterol [Breo 1 inh IH DAILY 07/29/20 09/06/20 Ellipta 100-25 Mcg INH] Furosemide [Furosemide 40MG tAB*] 40 tab PO DAILYP PRN 07/29/20 09/06/20 Meclizine HCl [Meclizine 25mg Tab] 25 mg PO TID 07/29/20 09/06/20 Omeprazole [Omeprazole 20mg 20 mg PO DAILY 07/29/20 09/06/20 Capsule] Potassium Chloride [Pot Chlor 10 20 meq PO DAILYP PRN 07/29/20 09/06/20 mEq Tab] Spironolactone [Aldactone 50mg 50 mg PO QAM 07/29/20 09/06/20 Tab] methylPREDNISolone 4 mg PO DIRECTED 07/29/20 09/06/20 [methylPREDNISolone 4mg Tablet] ibuprofen 800 mg tablet 800 mg PO tab 09/06/20 09/06/20 metoprolol succinate 200 mg 200 mg PO tab 09/06/20 09/06/20 tablet,extended release 24 hr potassium chloride 20 mEq 20 meq PO tab 09/06/20 09/06/20 tablet,extended release(part/cryst) Previous Rx's Medication Instructions
[2020-09-20 17:39] VITALS: BP 145/89; PULSE 82; RESP 18; TEMP 36.6; O2SAT 99
== END 2020-09-20 17:40 | disposition home or self-care (01) ==
PROVIDERS: Emergency Provider Nurse Practitioner; PCP Internal Medicine
DX: Z20.822 Contact with and (suspected) exposure to COVID-19 (principal); J44.9 Chronic obstructive pulmonary disease, unspecified; F41.8 Other specified anxiety disorders; I10 Essential (primary) hypertension; F17.210 Nicotine dependence, cigarettes, uncomplicated; Z79.899 Other long term (current) drug therapy
CPT/HCPCS: 99202; G0463; U0003

== ENCOUNTER 2020-10-15 17:59 | Emergency (ER) | payer BC, MEDICAID, SELFPAY ==
[2020-10-15 18:30] VITALS: BP 180/110; PULSE 82; RESP 20; TEMP 36.4; O2SAT 99; BMI 43.2
--- NOTE | 2020-10-15 18:49 | HMH.EDUTC ---
[facility] Disposition Clinical Impression: Exposure to COVID-19 virus Hypertension Qualifiers: Hypertension type: unspecified Qualified Code(s): I10 - Essential (primary) hypertension Disposition: Home, Self-Care Condition on Discharge: Good Instructions: Preventing the Spread of Coronavirus Discharge Instructions Additional Instructions: Drink plenty of fluids. Take tylenol for pain or fever. Return if you begin to have difficulty breathing. Follow up with your regular doctor. GO TO THE ER FOR ANY WORSENING SYMPTOMS Follow up with your primary care physician regarding your blood pressure. Make sure you take you medication once you get home that you have missed today. Referrals: Ha Deras [Primary Care Provider] - Time of Disposition: 18:51 Medical Decision Making - Medical Records Medical records reviewed: No: I reviewed the patient's medical records. - Felipe Inquiry Pt receiving controlled substance: No Vital Signs: 10/15/20 18:30 10/15/20 18:54 Temperature 97.6 F 97.6 F Temperature Source Oral Pulse Rate 82 Pulse Rate [Left Brachial] 82 Respiratory Rate 20 20 Blood Pressure 180/110 H Blood Pressure [Left Arm] 180/110 H Blood Pressure Mean [Left Arm] 133 Blood Pressure Source [Left Arm] Automatic Cuff Blood Pressure Position [Left Arm] Sitting 02 Sat by Pulse Oximetry 99 Oxygen Delivery Method Room Air Orders (Tests/Meds): ORDERS Category Date Time Status Covid-19 Nasal PCR ([facility]) Routine Lab 10/15/20 18:25 Received [facility] HPI - General Stated complaint: Covid Test Time Seen by Provider: 10/15/20 18:49 Mode of Arrival: Ambulatory Source of Information: Patient Limitations: No Limitations Description of Symptoms (Recalled from Triage Doc. by RN): COVID TEST D/T EXPOSURE. C/O COUGH AND HEADACHE HEENT Symptoms (Recalled from RN notes): Yes Resp Symptoms (Recalled from RN notes): Yes Skin Symptoms (Recalled from RN notes): No MS Symptoms (Recalled from RN notes): No Functional Status (Recalled from RN notes): WNL - History of Present Illness Provider Complaint: She states that she was exposed to covid-19 at her job about 5 days ago. She denies any symptoms. - Related Data Home Medications Medication Instructions Recorded Confirmed albuterol sulfate 90 mcg/actuation 2 puff INHALATION Q4-6H PRN 11/05/17 09/06/20 aerosol inhaler metoprolol tartrate 100 mg tablet 200 mg PO BID 11/05/17 09/06/20 lorazepam 0.5 mg tablet 1 mg PO DAILY tab 12/05/17 09/06/20 duloxetine 60 mg capsule,delayed 60 mg PO DAILY cap 06/30/20 09/06/20 release Fluticasone/Vilanterol [Breo 1 inh IH DAILY 07/29/20 09/06/20 Ellipta 100-25 Mcg INH] Furosemide [Furosemide 40MG tAB*] 40 tab PO DAILYP PRN 07/29/20 09/06/20 Meclizine HCl [Meclizine 25mg Tab] 25 mg PO TID 07/29/20 09/06/20 Omeprazole [Omeprazole 20mg 20 mg PO DAILY 07/29/20 09/06/20 Capsule] Potassium Chloride [Pot Chlor 10 20 meq PO DAILYP PRN 07/29/20 09/06/20 mEq Tab] Spironolactone [Aldactone 50mg 50 mg PO QAM 07/29/20 09/06/20 Tab] methylPREDNISolone 4 mg PO DIRECTED 07/29/20 09/06/20 [methylPREDNISolone 4mg Tablet] ibuprofen 800 mg tablet 800 mg PO tab 09/06/20 09/06/20 metoprolol succinate 200 mg 200 mg PO tab 09/06/20 09/06/20 tablet,extended release 24 hr potassium chloride 20 mEq 20 meq PO tab 09/06/20 09/06/20 tablet,extended release(part/cryst) Previous Rx's Medication Instructions Recorded Oxycodone HCl/Acetaminophen 1 tab PO Q4-6H PRN #20 tab 08/23/20 [Percocet 5/325mg tablet] Allergies Allergy/AdvReac Type Severity Reaction Status Date / Time chapito Allergy Unknown Verified 09/06/20 15:11 - Worker's Comp Is this a Worker's Comp case?: No [facility] History - Hepatitis A Screen Drug use history?: No High risk sexual behaviors?: No History of sexually transmitted infection?: No Currently employed?: No Childcare worker?: No Do you
[2020-10-15 18:54] VITALS: BP 180/110; PULSE 82; RESP 20; TEMP 36.4; O2SAT 99
== END 2020-10-15 18:56 | disposition home or self-care (01) ==
PROVIDERS: Emergency Provider Nurse Practitioner Family; PCP Internal Medicine
DX: Z20.822 Contact with and (suspected) exposure to COVID-19 (principal); I10 Essential (primary) hypertension; F41.8 Other specified anxiety disorders; J44.9 Chronic obstructive pulmonary disease, unspecified; F17.210 Nicotine dependence, cigarettes, uncomplicated; Z79.899 Other long term (current) drug therapy
CPT/HCPCS: 99202; G0463; U0003

== ENCOUNTER 2021-03-24 09:04 | Emergency (ER) | payer BC, SELFPAY ==
[2021-03-24 09:16] VITALS: BP 151/89; PULSE 101; RESP 21; TEMP 36.9; O2SAT 98; BMI 41.4
[2021-03-24 09:27] LABS: Apearance,Urine Cloudy (Clear); Color,Urine Dark Yellow (Yellow); PH,Urine 5.5 (5.0-8.5)
[2021-03-24 09:28] LABS: Bilirubin,Urine Negative (Negative); Blood, Urine 3+ (Negative); Glucose,Urine (UA) Negative (Negative); Ketones,Urine TRACE (Negative); Protein,Urine 1+ (Negative); UTC Leukocyte Esterase,Urine 3+ (Negative); UTC Nitrate,Urine Positive (Negative); Urobilinogen,Urine 0.2 EU/dl (0.2)
--- NOTE | 2021-03-24 09:35 | HMH.EDUTC ---
[facility] [place] Disposition Clinical Impression: UTI (urinary tract infection) Qualifiers: Urinary tract infection type: site unspecified Hematuria presence: with hematuria Qualified Code(s): N39.0 - Urinary tract infection, site not specified Sinus infection Qualifiers: Sinusitis location: unspecified location Chronicity: acute Recurrence: non-recurrent Qualified Code(s): J01.90 - Acute sinusitis, unspecified Disposition: Home, Self-Care Condition on Discharge: Good Instructions: Urinary Tract Infection, Sinusitis, DI for Sinusitis Additional Instructions: Drink plenty of fluids. Take tylenol or ibuprofen for pain or fever. Take the medications as directed. Follow up with your regular doctor. GO TO THE ER FOR ANY WORSENING SYMPTOMS The pyridium will make your urine turn orange, this is an expected side effect. It will stain your clothes if it comes into contact with them. Prescriptions: Amoxicillin/Potassium Clav [Augmentin 875-125 Tablet] 1 tab PO Q12H 10 Days #20 tab Transmission Status: Received by [facility] Fluconazole [Diflucan 150mg tab] 150 mg PO ONCE #1 tab Transmission Status: Received by [facility] Phenazopyridine HCl [Pyridium 200mg Tablet] 200 pow PO TID #6 tab Transmission Status: Received by [facility] Referrals: Ha Deras [Primary Care Provider] - Forms: Work/School Release Time of Disposition: 09:55 Medical Decision Making - Medical Records Medical records reviewed: No: I reviewed the patient's medical records. - Felipe Inquiry Pt receiving controlled substance: No Vital Signs: 03/24/21 09:16 03/24/21 09:46 Temperature 98.4 F 98.5 F Temperature Source Oral Pulse Rate 99 H Pulse Rate [Left] 101 H Respiratory Rate 21 22 Blood Pressure 148/90 H Blood Pressure [Right Arm] 151/89 H Blood Pressure Mean [Right Arm] 109 02 Sat by Pulse Oximetry 98 - Lab Data Lab results reviewed: Yes: I reviewed the patient's lab results. Lab Results 03/24/21 09:20: Urine Color Dark yellow, Urine Appearance Cloudy, Urine pH 5.5, Ur Specific [place] 1.020, Urine Protein 1+, Urine Glucose (UA) Negative, Urine Ketones Trace, Urine Blood 3+, Urine Nitrate Positive A, Urine Bilirubin Negative, Urine Urobilinogen 0.2, Ur Leukocyte Esterase 3+ A Orders (Tests/Meds): ED MEDICATIONS Discontinued Medications Generic Name Dose Route Start Last Admin Trade Name Waldo PRN Reason Stop Dose Admin Ceftriaxone Sodium 1 gm 03/24/21 09:38 03/24/21 09:40 Ceftriaxone 1gm Vial IM 03/24/21 09:39 1 gm ONCE ONE Administration Protocol Lidocaine HCl 0 ml 03/24/21 09:38 03/24/21 09:41 Lidocaine 1% 5ml Pf Vial IM 03/24/21 09:39 2.5 ml ONCE ONE Administration ORDERS Category Date Time Status Urine Culture Stat Micro 03/24/21 09:26 Received [facility] [place] HPI - General Stated complaint: lower back pain, abdominal pain Time Seen by Provider: 03/24/21 09:35 Mode of Arrival: Ambulatory Source of Information: Patient Limitations: No Limitations Description of Symptoms (Recalled from Triage Doc. by RN): pt c/o of lower back pain and burning with urination. pt also c/o sinus drainage, pressure and congestion. HEENT Symptoms (Recalled from RN notes): Yes (nasal drainage, congestion and sinus pressure) Resp Symptoms (Recalled from RN notes): No Skin Symptoms (Recalled from RN notes): No MS Symptoms (Recalled from RN notes): No Functional Status (Recalled from RN notes): na - History of Present Illness Provider Complaint: She states that for the past 2 days she has had low back pain, burning with urination, chills and she has felt bad. She has also had sinus congestion and a cough also. - Related Data Home Medications Medication Instructions Recorded Confirmed albuterol sulfate 90 mcg/actuation 2 puff INHALATION Q4-6H PRN 11/05/17 01/13/21 aerosol inhaler metoprolol tartrate 100 mg tablet 200 mg PO BID 11/05/17 01/13/21 lorazepa
[2021-03-24 09:46] VITALS: BP 148/90; PULSE 99; RESP 22; TEMP 36.9
== END 2021-03-24 10:00 | disposition home or self-care (01) ==
PROVIDERS: Emergency Provider Nurse Practitioner Family; PCP Internal Medicine
DX: N30.00 Acute cystitis without hematuria (principal); J01.90 Acute sinusitis, unspecified; J44.9 Chronic obstructive pulmonary disease, unspecified; I10 Essential (primary) hypertension; F41.8 Other specified anxiety disorders; F17.210 Nicotine dependence, cigarettes, uncomplicated
CPT/HCPCS: 81003; 87086; 87088; 87186; 96372; 99202; G0463

== ENCOUNTER 2021-04-19 14:01 | Emergency (ER) | payer BC, SELFPAY ==
[2021-04-19 14:01] VITALS: BP 188/101; PULSE 97; RESP 18; TEMP 36.9; O2SAT 98; BMI 41.5
--- NOTE | 2021-04-19 15:01 | HMH.EDUTC ---
[facility] [place] Disposition Clinical Impression: Encounter for laboratory testing for COVID-19 virus Disposition: Home, Self-Care Condition on Discharge: Good Instructions: DI for COVID-19 (Suspected or Confirmed ), Coronavirus Disease 2019, Preventing the Spread of Coronavirus Discharge Instructions Additional Instructions: *Monitor Temp, Over the counter Motrin or Tylenol as directed/as needed Tylenol every 4 hours and Motrin every 6 hours (as long as your family doctor has told you that you can take it) for fever or pain. and straight to ER if unable to lower temp less than 101.0 after medication given Follow up IMMEDIATELY for new or worsening symptoms or no Noticeable improvement over the next 48-72 hours. 911 for difficulty breathing or swallowing You were tested for today for COVID19 your test result should be back in the next 24-48 hours, you may call to the [facility] to see if your test results are back in the next 48 hours [phone] [facility] hours are 9am-9pm You was given a handout with instructions for Self Quarantine and Self isolation for while you wait on test results and what to do if they are positive If you are positive the Health Dept will be contacting you also Referrals: Ha Deras [Primary Care Provider] - As needed Time of Disposition: 15:04 Medical Decision Making - Felipe Inquiry Pt receiving controlled substance: No Felipe was queried for this patient: No Vital Signs: 04/19/21 14:01 Temperature 98.4 F Temperature Source Oral Pulse Rate [Apical] 97 H Respiratory Rate 18 Blood Pressure [Right Arm] 188/101 H Blood Pressure Mean [Right Arm] 130 Blood Pressure Source [Right Arm] Automatic Cuff Blood Pressure Position [Right Arm] Supine 02 Sat by Pulse Oximetry 98 Oxygen Delivery Method Room Air Orders (Tests/Meds): ORDERS Category Date Time Status Covid-19 Nasal PCR ([facility]) Routine Lab 04/19/21 14:37 Received [facility] [place] HPI - General Stated complaint: covid test Time Seen by Provider: 04/19/21 15:01 Mode of Arrival: Ambulatory Source of Information: Patient Limitations: No Limitations Description of Symptoms (Recalled from Triage Doc. by RN): covid test to return to work HEENT Symptoms (Recalled from RN notes): No Resp Symptoms (Recalled from RN notes): No Skin Symptoms (Recalled from RN notes): No MS Symptoms (Recalled from RN notes): No Functional Status (Recalled from RN notes): na - History of Present Illness Provider Complaint: Patient states that she recently tested positive for COVID States that she has to get retested before she can return to work so she came in to get tested States that her 10 day quarantine is up and she is no longer having any symptoms - Related Data Home Medications Medication Instructions Recorded Confirmed albuterol sulfate 90 mcg/actuation 2 puff INHALATION Q4-6H PRN 11/05/17 01/13/21 aerosol inhaler metoprolol tartrate 100 mg tablet 200 mg PO BID 11/05/17 01/13/21 lorazepam 0.5 mg tablet 1 mg PO DAILY tab 12/05/17 01/13/21 duloxetine 60 mg capsule,delayed 60 mg PO DAILY cap 06/30/20 01/13/21 release Fluticasone/Vilanterol [Breo 1 inh IH DAILY 07/29/20 01/13/21 Ellipta 100-25 Mcg INH] Furosemide [Furosemide 40MG tAB*] 40 tab PO DAILYP PRN 07/29/20 01/13/21 Meclizine HCl [Meclizine 25mg Tab] 25 mg PO TID 07/29/20 01/13/21 Omeprazole [Omeprazole 20mg 20 mg PO DAILY 07/29/20 01/13/21 Capsule] Potassium Chloride [Pot Chlor 10 20 meq PO DAILYP PRN 07/29/20 01/13/21 mEq Tab] Spironolactone [Aldactone 50mg 50 mg PO QAM 07/29/20 01/13/21 Tab] ibuprofen 800 mg tablet 800 mg PO tab 09/06/20 01/13/21 metoprolol succinate 200 mg 200 mg PO tab 09/06/20 01/13/21 tablet,extended release 24 hr potassium chloride 20 mEq 20 meq PO tab 09/06/20 01/13/21 tablet,extended release(part/cryst) Previous Rx's Medication Instructions Recorded Amoxicillin/Potassium Clav 1 tab PO Q12H 10 Days #20 tab 03/24/21 [Augmentin 875-125 Tablet
[2021-04-19 15:18] VITALS: BP 188/101; PULSE 97; RESP 18; TEMP 36.9; O2SAT 98
--- NOTE | 2021-04-20 09:35 | PC.NURSE ---
ATTEMPTED TO CALL PT ABOUT COVID TEST RESULT. NO ANSWER, WILL TRY AGAIN LATER
== END 2021-04-19 15:19 | disposition home or self-care (01) ==
PROVIDERS: Emergency Provider Nurse Practitioner; PCP Internal Medicine
DX: U07.1 COVID-19 (principal); F41.8 Other specified anxiety disorders; J44.9 Chronic obstructive pulmonary disease, unspecified; I10 Essential (primary) hypertension; F17.210 Nicotine dependence, cigarettes, uncomplicated; Z79.899 Other long term (current) drug therapy
CPT/HCPCS: 99202; G0463; U0003

== ENCOUNTER → 2021-07-16 09:36 | Outpatient (CLI) | payer BC, SELFPAY ==
[2021-07-16 10:06] LABS: Hematocrit 45.3 % (37.0-47.0); Hemoglobin 14.3 g/dL (12.2-16.2); Red Blood Count 4.74 M/mm3 (4.20-5.40)
[2021-07-16 10:07] LABS: Basophils # 0.1 K/mm3 (0-0.2); Basophils % 0.6 % (0.1-2.0); Eosinophils # 0.3 K/mm3 (0.0-0.4); Eosinophils % 1.6 % (0.1-12.0); Lymphocytes # 2.1 K/mm3 (0.7-4.5); Mean Corpuscular HGB Conc 31.5 g/dL (31.8-35.4); Mean Corpuscular Hemoglobin 30.1 pg (27.0-31.2); Mean Corpuscular Volume 95.6 fl (81-99); Mean Platelet Volume 8.8 fl (7.4-10.4); Monocytes # 0.4 K/mm3 (0.1-1.0); Monocytes % 2.6 % (1.7-9.3); Neutrophils # 13.2 K/mm3 (1.8-7.8); Neutrophils % 82.2 % (37.0-80.0); Platelet Count 324 K/mm3 (142-424)
[2021-07-16 10:18] LABS: MANUAL DIFFERENTIAL MANUAL DIFFERENTIAL (MANUAL DIFF)
[2021-07-16 10:47] LABS: Chloride 104 mmol/L (98-107); Potassium 4.8 mmoL/L (3.5-5.1); Sodium 138 mmol/L (136-145)
[2021-07-16 10:50] LABS: Alanine Aminotransferase 18 U/L (12-78); Albumin/Globulin Ratio 1.3 (1.1-1.8); Alkaline Phosphatase 78 U/L (38-126); Anion Gap 14.8 mEq/L (5-15); Aspartate Amino Transferase 21 U/L (14-36); Bilirubin,Total 0.4 mg/dl (0.2-1.3); Blood Urea Nitrogen 8 mg/dl (7-17); Carbon Dioxide 24 mmol/L (22.0-30.0); Cholesterol 203 mg/dl (140-200); Estimated Glomerular Filt Rate 176 ml/min (>60); GFR (African American) 213 ML/MIN (>60); Globulin 3.2 g/dL (1.3-3.2); Glucose 143 mg/dl (74-100); Total Protein,Serum 7.2 g/dl (6.3-8.2); Triglycerides 95 mg/dl (30-150); VLDL Cholesterol 19 mg/dL (0-40)
[2021-07-16 10:51] LABS: Calcium 9.2 mg/dl (8.4-10.2); Chol/HDL Ratio 3.7 (1-3.5); HDL Cholesterol 55 mg/dl (40-60)
[2021-07-16 11:02] LABS: Direct LDL Cholesterol 136.64 mg/dL (100-129)
[2021-07-16 11:22] LABS: Lymphocytes % 28 % (10-50); Monocytes % 6 % (2-9); Neutrophils % 66 % (42-76); Platelet Estimate Normal; Total Cells Counted 100
[2021-07-16 12:15] LABS: Free Thyroxine Index 3.6 ug/dL (5.93-13.13); T4 (Thyroxine) 11.6 ug/dl (5.53-11.0); Triiodothryronine (T3) Uptake 31 % (23.5-40.5)
[2021-07-16 12:29] LABS: Thyroid Stimulating Hormone 1.66 uIU/mL (0.465-4.68)
[2021-07-17 07:22] LABS: FSH 17.8 mIU/mL (.); LH 26.6 mIU/mL (.)
== END ==
PROVIDERS: Visit Provider Nurse Practitioner Obstetrics & Gynecology
DX: I10 Essential (primary) hypertension (principal); Z00.00 Encounter for general adult medical examination without abnormal findings; R53.82 Chronic fatigue, unspecified
CPT/HCPCS: 36415; 80053; 80061; 82670; 83001; 83002; 84436; 84443; 84479; 85007; 85025

== ENCOUNTER → 2021-08-03 15:35 | Outpatient (CLI) | payer BC, SELFPAY ==
--- NOTE | 2021-08-03 15:35 | MM_ITS ---
PROCEDURE INFORMATION: Exam: MG Bilateral Screening 3D Mammography Exam date and time: 08/03/2021 3:35 PM Age: 41 years old Clinical indication: Encounter for screening mammogram for malignant neoplasm of breast TECHNIQUE: Imaging protocol: Bilateral screening tomosynthesis and 2D mammography including computer-aided detection (CAD) when performed. COMPARISON: No relevant prior studies available. FINDINGS: MAMMOGRAPHY: Breast composition: The breast tissue is heterogeneously dense, which may obscure small masses. Mass: None. Architectural distortion: None. Calcifications: No suspicious calcifications. Asymmetric density: None. Skin thickening: None. Axillary adenopathy: None. IMPRESSION: No mammographic evidence of malignancy. Annual screening is recommended unless otherwise clinically indicated. ASSESSMENT: BI-RADS Category 1: Negative
== END ==
PROVIDERS: PCP Internal Medicine; Visit Provider Nurse Practitioner Obstetrics & Gynecology
DX: Z12.31 Encounter for screening mammogram for malignant neoplasm of breast (principal)
CPT/HCPCS: 77063; 77067

== ENCOUNTER 2021-08-13 11:38 | Emergency (ER) | payer BC, SELFPAY ==
[2021-08-13 12:30] VITALS: BP 187/104; PULSE 124; RESP 18; TEMP 36.9; O2SAT 98; BMI 39.9
--- NOTE | 2021-08-13 13:11 | HMH.EDUTC ---
[facility] [place] Disposition Clinical Impression: Diarrhea Qualifiers: Diarrhea type: unspecified type Qualified Code(s): R19.7 - Diarrhea, unspecified Disposition: Home, Self-Care Condition on Discharge: Good Instructions: Diarrhea, DI for Acute Abdominal Pain, DI for Nausea -- Adult Additional Instructions: Drink extra fluids with and between meals. If you have difficulty drinking, try very small amounts of water or suck on ice chips. ? Avoid fruit juices, as these do not replace minerals and can actually increase diarrhea. ? Children and adults can use sports drinks to replenish electrolytes. Younger children and infants should use products formulated for children, like oral rehydration solutions. ? Eat food in small amounts and let your stomach recover. ? Get lots of rest. You may feel tired or weak. ? No greasy or fried foods for the next 24-48 hours BRAT diet Bananas Rice Apples and Cum[place] ? Make sure to drink plenty of liquids ? Return if needed ? Straight to ER if any life threatening symptoms ? Zofran as prescribed ? You was given an outpatient order for diarrhea panel, please collect specimen and bring back to outpatient lab then call back to the [facility] or follow up with family doctor for results ? Follow up with family doctor in the next 48-72 hours if no improvement or any worsening of symptoms Prescriptions: Dicyclomine HCl [Bentyl 10mg capsule] 10 mg PO TID PRN #15 cap PRN Reason: Cramping Transmission Status: Received by [facility] Ondansetron [Zofran 4mg ODT] 4 mg PO TIDP PRN #20 tab PRN Reason: Nausea Transmission Status: Received by [facility] Referrals: Ha Deras [Primary Care Provider] - As needed Forms: Work/School Release Time of Disposition: 13:41 Medical Decision Making - Felipe Inquiry Pt receiving controlled substance: No Felipe was queried for this patient: No Vital Signs: 08/13/21 12:30 08/13/21 13:20 08/13/21 13:50 Temperature 98.4 F 98.4 F Temperature Source Oral Pulse Rate 97 H Pulse Rate [Right Brachial] 124 H 97 H Respiratory Rate 18 18 Blood Pressure 157/97 H Blood Pressure [Right Arm] 187/104 H 157/97 H Blood Pressure Mean [Right Arm] 131 117 Blood Pressure Source [Right Arm] Automatic Cuff Automatic Cuff Blood Pressure Position [Right Arm] Sitting Sitting 02 Sat by Pulse Oximetry 98 Oxygen Delivery Method Room Air Orders (Tests/Meds): ED MEDICATIONS Discontinued Medications Generic Name Dose Route Start Last Admin Trade Name Waldo PRN Reason Stop Dose Admin Dicyclomine HCl 10 mg 08/13/21 13:11 08/13/21 13:16 Dicyclomine 10mg Capsule PO 08/13/21 13:12 10 mg ONCE ONE Administration Ondansetron HCl 4 mg 08/13/21 13:11 08/13/21 13:17 Ondansetron 4mg Odt SL 08/13/21 13:12 4 mg ONCE ONE Administration Medical Decision Narrative: Patient states that medication did help and she wanted to go home Discussed transfer to the ED for further work up and evalution and CT if warranted and she advised that she would follow up with her Family Doctor on Sunday if no improvement or return straight to the ER [facility] HPI - General Stated complaint: cough, abd pain Time Seen by Provider: 08/13/21 13:11 Mode of Arrival: Ambulatory Source of Information: Patient Limitations: No Limitations Description of Symptoms (Recalled from Triage Doc. by RN): PATIENT C/O STOMACH CRAMPS, DIARRHEA AND NAUSEA SINCE YESTERDAY HEENT Symptoms (Recalled from RN notes): No Resp Symptoms (Recalled from RN notes): No Skin Symptoms (Recalled from RN notes): No MS Symptoms (Recalled from RN notes): No Functional Status (Recalled from RN notes): WNL - History of Present Illness Provider Complaint: Patient states that she was having nausea, diarrhea and stomach cramps since yesterday States that today she was still having cramping and nausea with diarrhea on and off so she came in to get checked - Related Data Home Medications Medication Instr
[2021-08-13 13:20] VITALS: BP 157/97; PULSE 97
[2021-08-13 13:50] VITALS: BP 157/97; PULSE 97; RESP 18; TEMP 36.9; O2SAT 98
== END 2021-08-13 13:54 | disposition home or self-care (01) ==
PROVIDERS: Emergency Provider Nurse Practitioner; PCP Internal Medicine
DX: R05.1 Acute cough (principal); R19.7 Diarrhea, unspecified; F41.8 Other specified anxiety disorders; I10 Essential (primary) hypertension
CPT/HCPCS: 99202; G0463

== ENCOUNTER → 2021-08-26 16:21 | Outpatient (CLI) | payer BC, SELFPAY | PROVIDERS: PCP Internal Medicine; Visit Provider Nurse Practitioner | DX: Z20.822 Contact with and (suspected) exposure to COVID-19 (principal) | CPT/HCPCS: C9803; U0003; U0005 ==

== ENCOUNTER → 2021-09-19 14:20 | Outpatient (CLI) | payer BC, SELFPAY | PROVIDERS: PCP Internal Medicine; Visit Provider Nurse Practitioner | DX: Z20.822 Contact with and (suspected) exposure to COVID-19 (principal) | CPT/HCPCS: C9803; U0003; U0005 ==

== ENCOUNTER 2021-09-21 08:59 | Emergency (ER) | payer BC, SELFPAY ==
[2021-09-21 09:45] VITALS: BP 149/83; PULSE 82; RESP 16; TEMP 36.8; O2SAT 98; BMI 41.5
--- NOTE | 2021-09-21 10:19 | HMH.EDUTC ---
[facility] [place] Impression: Strep throat, Exposure to COVID-19 virus, Viral syndrome Disposition: Home, Self-Care Condition on Discharge: Good Instructions: DI for Strep Throat, DI for COVID-19 (Suspected or Confirmed ), Preventing the Spread of Coronavirus Discharge Instructions Additional Instructions: Drink plenty of fluids. Take tylenol or ibuprofen for pain or fever. Take the medications as directed. Follow up with your regular doctor. GO TO THE ER FOR ANY WORSENING SYMPTOMS Throw your tooth brush away and get a new one. Quarantine until you know the results of your covid-19 test. If it is positive, the health department should call you and give you further instructions about your length of Quarantine and other things. Notify your school or workplace of your results and follow their instructions regarding return to work/school. If you're only positive for strep throat, then you need to quarantine for 24 hours after starting the antibiotics. Then you would be ok to return to work. But, if the covid-19 test is positive to, then follow the quarantine guidelines for that too. The cough medication (promethazine dm) will make you drowsy, so don't drive or operate heavy machinery after taking it. Prescriptions: Albuterol Sulfate [Albuterol Sulfate Hfa] 2 puffs IH Q6HP PRN 30 Days #1 each PRN Reason: Shortness Of Breath Transmission Status: Received by [facility] Promethazine/Dextromethorphan [Promethazine-Dm Syrup] 5 ml PO Q6HP PRN #240 ml PRN Reason: Cough Transmission Status: Received by [facility] Amoxicillin/Potassium Clav [Augmentin 875-125 Tablet] 1 tab PO Q12H 10 Days #20 tab Transmission Status: Received by [facility] methylPREDNISolone [Medrol] 4 mg PO DIRECTED 6 Days #21 packet Transmission Status: Received by [facility] guaiFENesin [Mucinex 600mg tablet] 1 - 2 tab PO BIDP PRN #30 tab PRN Reason: Congestion Transmission Status: Received by [facility] Referrals: Ha Deras [Primary Care Provider] - Forms: Work/School Release Time of Disposition: 10:23 Medical Decision Making - Medical Records Medical records reviewed: No: I reviewed the patient's medical records. - Felipe Inquiry Pt receiving controlled substance: No Vital Signs: 09/21/21 09:45 09/21/21 10:45 Temperature 98.3 F 98.3 F Temperature Source Oral Pulse Rate 82 Pulse Rate [Left] 82 Respiratory Rate 16 16 Blood Pressure 149/83 H Blood Pressure [Right Arm] 149/83 H Blood Pressure Mean [Right Arm] 105 02 Sat by Pulse Oximetry 98 - Lab Data Lab results reviewed: Yes: I reviewed the patient's lab results. Lab Results 09/21/21 09:49: Influenza Type A Ag Negative, Influenza Type B Ag Negative 09/21/21 09:49: Strep Scn [facility] Positive [facility] [place] - General Stated complaint: cough,runny nose,headache Time Seen by Provider: 09/21/21 10:19 Mode of Arrival: Ambulatory Source of Information: Patient Limitations: No Limitations Description of Symptoms (Recalled from Triage Doc. by RN): pt c/o chest congestion, cough, SOA, weakness, WOODRUFF, nasal drainage and diarrhea. ongoing x4 days. pt had a pos. rapid covid at work on 1/3 HEENT Symptoms (Recalled from RN notes): Yes Resp Symptoms (Recalled from RN notes): Yes Skin Symptoms (Recalled from RN notes): No MS Symptoms (Recalled from RN notes): No Functional Status (Recalled from RN notes): wnl - History of Present Illness Provider Complaint: She c/o sore throat, cough and chest congestion for the past 4 days. - Related Data Home Medications Medication Instructions Recorded Confirmed Metoprolol Succinate [Metoprolol 200 mg PO DAILY 08/13/21 08/15/21 Succinate 200mg Tablet*] Spironolactone 50 mg PO DAILY 08/13/21 08/15/21 Previous Rx's Medication Instructions Recorded Dicyclomine HCl [Bentyl 10mg 10 mg PO TID PRN #15 cap 08/13/21 capsule] Ondansetron [Zofran 4mg ODT
[2021-09-21 10:38] LABS: UTC Strep Screen (Rapid) Positive (Negative)
[2021-09-21 10:39] LABS: UTC Influenza A Antigen Negative (Negative); UTC Influenza B Antigen Negative (Negative)
[2021-09-21 10:45] VITALS: BP 149/83; PULSE 82; RESP 16; TEMP 36.8
== END 2021-09-21 11:07 | disposition home or self-care (01) ==
PROVIDERS: Emergency Provider Nurse Practitioner Family; PCP Internal Medicine
DX: J02.0 Streptococcal pharyngitis (principal); Z20.822 Contact with and (suspected) exposure to COVID-19; I10 Essential (primary) hypertension; F41.8 Other specified anxiety disorders; F17.210 Nicotine dependence, cigarettes, uncomplicated
CPT/HCPCS: 87804; 87880; 99203; C9803; G0463; U0003; U0005

== ENCOUNTER 2021-11-17 09:50 | Emergency (ER) | payer BC, SELFPAY ==
--- NOTE | 2021-11-17 09:44 | ECG_ITS ---
APPROVED REPORT Exam: Resting ECG HR:88 bpm ECG Measurements Heart Rate 88 AXES OR 159 P 68 QRSd 86 QRS -31 QT 349 T 66 QTc 395 Conclusion SINUS RHYTHM LEFT AXIS DEVIATION [QRS AXIS < -30] POSSIBLE RIGHT VENTRICULAR CONDUCTION DELAY [RSR (QR) IN V1/V2] ABNORMAL ECG UNCONFIRMED REPORT Electronically signed by : Thor Burton MD 11/18/2021 16:03:23
[2021-11-17 09:50] VITALS: BP 172/98; PULSE 77; RESP 16; TEMP 36.7; O2SAT 96; BMI 41.5
--- NOTE | 2021-11-17 09:56 | XR_ITS ---
FINAL REPORT CLINICAL HISTORY: chest pain COMPARISON: 12/03/2017 FINDINGS: SINGLE VIEW CHEST The heart is normal in size. The mediastinum is unremarkable. The lungs are clear. There is no pneumothorax. IMPRESSION: No acute cardiopulmonary process. Reviewed, Interpreted and Dictated by Shai Whiting III, MD Transcribed by Maya Oropeza Authenticated by Shai Whiting III, MD on 11/17/2021 10:50:59 AM [facility]
[2021-11-17 10:00] VITALS: BP 186/105; PULSE 80; RESP 16; O2SAT 98
--- NOTE | 2021-11-17 10:08 | HMH.EDGENADL ---
ED Disposition Clinical Impression: Atypical chest pain Hypertension Qualifiers: Hypertension type: primary hypertension Qualified Code(s): I10 - Essential (primary) hypertension Disposition: Home, Self-Care Condition on Discharge: Good Instructions: DI for Atypical Chest Pain Referrals: Ha Deras [Primary Care Provider] - Jose E Monteiro MD [Staff Physician] - - Critical Care Critical Care Time: No Attestation: On 11/17/21, the high probability of a clinically significant, sudden or life threatening deterioration of the following system(s) required my full and direct attention, intervention and personal management. The time I documented below is in addition to time spent performing reported procedures but includes the following listed in this critical care notation. Medical Decision Making - Medical Records Medical records reviewed: Yes: I reviewed the patient's medical records. - Felipe Inquiry Pt receiving controlled substance: No Vital Signs: 11/17/21 09:50 11/17/21 10:00 11/17/21 10:30 Temperature 98.1 F Temperature Source Oral Pulse Rate 80 82 Pulse Rate [Right Radial] 77 Respiratory Rate 16 16 14 Blood Pressure 186/105 H 168/101 H Blood Pressure [Right Arm] 172/98 H Blood Pressure Mean 132 123 Blood Pressure Mean [Right Arm] 122 Blood Pressure Source [Right Arm] Automatic Cuff Blood Pressure Position [Right Arm] Sitting 02 Sat by Pulse Oximetry 96 98 97 Oxygen Delivery Method Room Air Room Air - Lab Data Lab Results 11/17/21 10:55: WBC 15.1 H, RBC 4.88, Hgb 14.7, Hct 46.6, MCV 95.4, MCH 30.0, MCHC 31.5 L, RDW 12.9, Plt Count 323, MPV 8.5, Neut % (Auto) 82.1 H, Lymph % (Auto) 13.3, Keith % (Auto) 3.0, Eos % (Auto) 0.7, Baso % (Auto) 0.9, Neut # (Auto) 12.4 H, Lymph # (Auto) 2.0, Keith # (Auto) 0.5, Eos # (Auto) 0.1, Baso # (Auto) 0.1 11/17/21 10:55: Sodium 133 L, Potassium 4.8, Chloride 99, Carbon Dioxide 25, Anion Gap 13.8, BUN 9, Creatinine 0.50 L, Estimated Creat Clear 133, Estimated GFR 136, Est GFR ( Amer) 165, Glucose 143 H, Calcium 8.6, Total Bilirubin 0.8, AST 36, ALT 29, Alkaline Phosphatase 73, Troponin I < 0.01, NT-Pro-B Natriuret Pep 27.8, Total Protein 8.3 H, Albumin 4.6, Globulin 3.7 H, Albumin/Globulin Ratio 1.2 Result diagrams: 11/17/21 10:55 11/17/21 10:55 Orders (Tests/Meds): ORDERS Category Date Time Status Complete Blood Count Auto Diff Stat Lab 11/17/21 10:55 Results Troponin I Q3H Lab 11/17/21 13:00 Ordered Troponin I Q3H Lab 11/17/21 16:00 Ordered - Radiology Data #1 Image(s): Chest Image Reviewed: Yes I reviewed the patient's radiology results, Yes I reviewed the patient's radiology image, Yes I have reviewed radiologist's interpretation Preliminary Findings: Normal/NAD - ECG Data Tracing #1 I reviewed this ECG and interpreted as documented below: Normal jugular rate 88 bpm, VT interval 159 ms. Normal QTC. Sinus rhythm with nonspecific changes. ECG initial impression date: 11/17/21 ECG initial impression time: 09:44 - Reevaluation(s) Time: 12:09 Reevaluation #1: On reevaluation, the patient is feeling much better. Blood pressure is improved. Laboratory work unremarkable. I did explain to the patient that she needs to continue taking her blood pressure medications. She is to follow-up with her PCP in 48 hours. Given strict return precautions. Verbalized understanding. Medical Decision Narrative: 41-year-old female presented to the emergency department with a 4-day history of chest discomfort. Patient discontinued her blood pressure medications by herself, however did recently restart them. Chest pain sounds atypical in nature. Work-up initiated. General Adult HPI - General Chief complaint: PAIN Stated complaint: cp Time Seen by Provider: 11/17/21 10:00 Mode of Arrival: Ambulatory Limitations: No Limitations Description of Symptoms (Recalled from ER Triage Doc. by RN): Pt c/o rib pain
[2021-11-17 10:30] VITALS: BP 168/101; PULSE 82; RESP 14; O2SAT 97
[2021-11-17 11:15] LABS: Basophils # 0.1 K/mm3 (0-0.2); Basophils % 0.9 % (0.1-2.0); Eosinophils # 0.1 K/mm3 (0.0-0.4); Eosinophils % 0.7 % (0.1-12.0); Hematocrit 46.6 % (37.0-47.0); Hemoglobin 14.7 g/dL (12.2-16.2); Lymphocytes % 13.3 % (10-50); Mean Corpuscular HGB Conc 31.5 g/dL (31.8-35.4); Mean Corpuscular Volume 95.4 fl (81-99); Mean Platelet Volume 8.5 fl (7.4-10.4); Monocytes # 0.5 K/mm3 (0.1-1.0); Neutrophils # 12.4 K/mm3 (1.8-7.8); Neutrophils % 82.1 % (37.0-80.0); Platelet Count 323 K/mm3 (142-424); Red Blood Count 4.88 M/mm3 (4.20-5.40); Red Cell Distribution Width 12.9 % (11.5-17.5); White Blood Count 15.1 K/mm3 (4.8-10.8)
[2021-11-17 11:18] LABS: MANUAL DIFFERENTIAL MANUAL DIFFERENTIAL (MANUAL DIFF)
--- NOTE | 2021-11-17 11:40 | PC.NURSE ---
contacted lab to check on status of cmp and troponin results, lab staff states results will be approx 20 minutes- reports there was an error with the machine that is causing the delay notified ER
[2021-11-17 11:43] LABS: Chloride 99 mmol/L (98-107); Potassium 4.8 mmoL/L (3.5-5.1); Sodium 133 mmol/L (136-145)
[2021-11-17 11:46] LABS: Alanine Aminotransferase 29 U/L (12-78); Albumin Level 4.6 g/dl (3.5-5.0); Albumin/Globulin Ratio 1.2 (1.1-1.8); Alkaline Phosphatase 73 U/L (38-126); Anion Gap 13.8 mEq/L (5-15); Aspartate Amino Transferase 36 U/L (14-36); Bilirubin,Total 0.8 mg/dl (0.2-1.3); Blood Urea Nitrogen 9 mg/dl (7-17); Carbon Dioxide 25 mmol/L (22.0-30.0); Creatinine Clearance Estimated 133 mL/min (50-200); Estimated Glomerular Filt Rate 136 ml/min (>60); GFR (African American) 165 ML/MIN (>60); Globulin 3.7 g/dL (1.3-3.2); Total Protein,Serum 8.3 g/dl (6.3-8.2)
[2021-11-17 11:47] LABS: Calcium 8.6 mg/dl (8.4-10.2); Glucose 143 mg/dl (74-100)
[2021-11-17 11:56] LABS: NT Pro Brain Natriuretic Pep. 27.8 pg/mL (0-125)
[2021-11-17 12:03] LABS: Troponin I < 0.01 ng/ml (0.00-0.034)
[2021-11-17 12:24] LABS: Lymphocytes % 15 % (10-50); Monocytes % 2 % (2-9); Neutrophils % 83 % (42-76); Total Cells Counted 100
[2021-11-17 12:25] LABS: Platelet Estimate Normal
[2021-11-17 12:30] VITALS: BP 154/90; PULSE 84; RESP 16; TEMP 36.8; O2SAT 97
== END 2021-11-17 12:30 | disposition home or self-care (01) ==
PROVIDERS: Emergency Provider Emergency Medicine; PCP Internal Medicine
DX: R07.89 Other chest pain (principal); I10 Essential (primary) hypertension; J44.9 Chronic obstructive pulmonary disease, unspecified; F32.A Depression, unspecified; F41.9 Anxiety disorder, unspecified; F17.210 Nicotine dependence, cigarettes, uncomplicated; J98.4 Other disorders of lung; K82.9 Disease of gallbladder, unspecified; Z79.899 Other long term (current) drug therapy; Z91.018 Allergy to other foods; Z81.1 Family history of alcohol abuse and dependence; Z81.8 Family history of other mental and behavioral disorders; Z80.42 Family history of malignant neoplasm of prostate; Z82.49 Family history of ischemic heart disease and other diseases of the circulatory system
CPT/HCPCS: 71045; 80053; 83880; 84484; 85007; 85025; 93005; 99285

== ENCOUNTER → 2021-11-18 15:04 | Outpatient (CLI) | payer BC, SELFPAY ==
[2021-11-21 22:19] LABS: Neisseria gonorrhoeae, NAA Negative (Negative)
== END ==
PROVIDERS: Visit Provider Nurse Practitioner Obstetrics & Gynecology
DX: N89.8 Other specified noninflammatory disorders of vagina (principal); Z72.51 High risk heterosexual behavior
CPT/HCPCS: 87491; 87591

== ENCOUNTER → 2021-12-09 06:43 | Outpatient (CLI) | payer BC, SELFPAY ==
--- NOTE | 2021-12-09 06:47 | NM_ITS ---
APPROVED REPORT Exam: Nuclear Stress Test Indication: HTN, TOB USE, FM HX, C.P., SOB, FATIGUE Patient Location: Outpatient Stress Tech: Niru Saleh PR Tech:Mary Wang LYDIABrian RT (R)(N)(M) Ht: 5 ft 5 in Wt: 245 lbs Bra Size: 42DD HR: 86 bpm BP: 185/86 mmHg BSA: 2.16 m2 BMI: 40.7 History: HTN, TOB USE, FM HX, C.P., SOB, FATIGUE Procedure: Patient received a 0.4 mg of intravenous Lexiscan, resting heart rate 86 bpm, resting blood pressure 182/86 mmHg, with Lexiscan maximum heart rate achived was 112 bpm which is Less than 85 % of the maximum predicted heart rate and blood pressure was 196/92 mmHg. With Lexiscan, patient denied any complaint of chest pain. Electrocardiogram Resting electrocardiogram showed sinus rhythm, with Lexiscan there is less than 1.[address] segment depression noted from the baseline EKG. The EKG portion of the Lexiscan is nondiagnostic. Cardiac Stress and Resting SPECT Images: Cardiac Stress and Resting SPECT images were obtained using technetium 99m Myoview 29.8 mCi stress and 10.53 mCi at rest. Gated SPECT for analysis of segmental wall motion and calculation of the ejection fraction also done. Cardiac stress and resting SPECT images show a mild fixed defect in the anterior wall with normal contractility and the gated SPECT is likely secondary to soft tissue attenuation, no reversible ischemia seen, computer derived ejection fraction is 59% with no regional wall motion abnormality, right ventricle is normal size and contractility. Conclusion: 1. The EKG portion of the Lexiscan Myoview is nondiagnostic. 2. No scintigraphic evidence of reversible ischemia seen, computer derived ejection fraction 59% with no regional wall motion abnormality, right ventricle is normal size and contractility. 3. Likely normal Lexiscan Myoview study. Electronically signed by : Riki Swan MD 12/09/2021 12:12:55
--- NOTE | 2021-12-09 06:47 | CA_ITS ---
APPROVED REPORT EXAM: Comprehensive 2D, Doppler, and color-flow Echocardiogram Manager Maritime: Jessica Pollard RVT Ht: 5 ft 5 in Wt: 246lbs BSA: 2.16 BP: 140/93 mmHg Indications: CP,SOA,COPD,SMOKER,HTN,EDEMA,OBESITY 2D Dimensions LVOT 2.15 cm (M/F) 1.5-2.5 LA Volume 20.60 mL LA Volume Index 9.53 mL/m2 (M/F) 16-34 M-Mode Dimensions RVDd 1.87 cm (0.9-2.6) LA Diam 3.37 cm (1.9-4.0) LVDd 3.19 cm (3.5-5.7) Ao Diam 3.15 cm (2.0-3.7) LVDs 1.83 cm (3.5-5.7) IVSd 1.49 cm (0.6-1.1) PWd 0.76 cm (0.6-1.1) EF (Teich) 75.10% FS 42.60% EDV (Teich) 40.60 mL TAPSE 2.22 (<1.7) ESV (Teich) 10.10 mL LV Diastology E Decel Time 190.00 (160-240 msec) E/A Ratio 1.2 MED E' 6.50 (< 7 cm/sec) E'/MED E' Ratio 11.55 (>14) LAT E' 13.20 (<10 cm/sec) E/LAT E' Ratio 5.69 (>14) Aortic Valve AO Peak GR. 6.40 mmHg Mitral Valve MV E Max Subhash. 75.00 (40-130 cm/s) MV A Velocity 64.00 (40-130 cm/s) E/A Ratio 1.17 MV Decel. Time 190.00 (160-240 ms) MV PHT 56.00 ms Pulmonary Valve PV Peak Velocity 93.00 (50-150 cm/s) Tricuspid Valve TR P. Velocity 151.00 cm/s RAP Estimate 10.00 mmHg RVSP 19.10 mmHg Left Ventricle Left atrium is normal size, left ventricle is normal size, visually estimated ejection fraction 55% with no regional wall motion abnormality, diastolic parameters are within normal range. Right Ventricle Right atrium and right ventricle are normal size and contractility. Aortic Valve Aortic valve is grossly normal, there is no aortic stenosis or aortic insufficiency. Mitral Valve Mitral valve is grossly normal, there is trace mitral regurgitation. Tricuspid Valve Tricuspid grossly normal, there is trace tricuspid regurgitation, tricuspid regurgitation jet velocity is inadequate for calculation of the right ventricular systolic pressure. Pulmonic Valve Pulmonic valve is poorly visualized. Great Vessels Aortic root is normal size. Inferior vena cava normal size with normal inspiratory collapse. Pericardium No significant pericardial effusion noted. Conclusion 1. Normal left ventricular size, preserved left ventricular systolic function, visually estimated ejection fraction 55% with no regional wall motion abnormality, diastolic parameters are within normal range. 2. Trace mitral and tricuspid regurgitation. 3. No significant pericardial effusion. 4. Inferior vena cava is normal size with normal inspiratory collapse. Electronically signed by : Riki Swan MD 12/09/2021 15:46:05
--- NOTE | 2021-12-09 06:47 | CA_ITS ---
APPROVED REPORT Exam: Pharmacologic Technologist: Niru Saleh, Ht: 5 ft 5 in Wt: 246 lbs BSA: 2.16 m2 HR: 77 bpm BP: 182/86 mmHg Rhythm: NSR Medical History Medical History: HTN Medications: Amlodipine,,,,, Metoprolol,,,,, Albuterol,,,,, Metronidazole,,,,, SpirOnALACTONE,,,,, Allergies: KAREN Cardiac Risk Factors: HTN, Smoking Stress Test Details Test: LEXISCAN HR Resting HR: 86 bpm Max Heart Rate (APMHR): 179.686783 bpm Max HR Achieved: 112 bpm Target HR (85% APMHR): 152.529487 bpm % of APMHR: 62.57 Recovery HR: 98 bpm BP Resting BP: 182/86 mmHg Max BP: 196/92 mmHg Recovery BP: 148.0/79.0 mmHg ECG Resting ECG: NSR Clinical Reason for Termination: Completed Protocol Exercise duration: 04:01 min Highest Stage Achieved: Stress ECG Conclusion PT HAD NO CP. <1.[address] SEGMENT CHANGES. NON-DIAGNOSTIC Test Summary REST 02:59 . . 86 . 182/ 86 . . Stage 1 01:00 . . 112 . . . . Stage 2 01:00 . . 108 . . . . Stage 3 01:00 . . 103 . 196/ 92 . . Stage 4 01:00 . . 97 . 165/ 79 . . Stage 4 01:01 . . 97 . 165/ 79 . Stop exercise at 04:01 RECOVERY 01:00 . . 93 . . . . RECOVERY 01:15 . . 102 . 148/ 79 . . Electronically signed by : Riki Swan MD 12/09/2021 12:10:46
== END ==
LOC: RAD 06:46
PROVIDERS: PCP Internal Medicine; Visit Provider Physician Assistant
DX: R06.02 Shortness of breath (principal); R07.89 Other chest pain; I51.9 Heart disease, unspecified; I10 Essential (primary) hypertension; E66.9 Obesity, unspecified; Z68.41 Body mass index [BMI] 40.0-44.9, adult
CPT/HCPCS: 78452; 93017; 93306; A9502; J2785

== ENCOUNTER 2022-02-24 01:00 | Emergency (ER) | payer BC, SELFPAY ==
[2022-02-24] VITALS (9 sets, daily range): BP systolic 133–173; BP diastolic 63–101; PULSE 70–106; RESP 15–18; TEMP 36.7–36.8; O2SAT 96–99; BMI 41.4
--- NOTE | 2022-02-24 01:01 | ECG_ITS ---
APPROVED REPORT Exam: Resting ECG HR:100 bpm ECG Measurements Heart Rate 100 AXES AK 160 P 66 QRSd 87 QRS -18 QT 343 T 51 QTc 400 Conclusion SINUS TACHYCARDIA POSSIBLE RIGHT VENTRICULAR CONDUCTION DELAY [RSR (QR) IN V1/V2] ABNORMAL RHYTHM ECG UNCONFIRMED REPORT Electronically signed by : Thor Burton MD 02/24/2022 14:18:00
--- NOTE | 2022-02-24 01:12 | XR_ITS ---
PROCEDURE INFORMATION: Exam: XR Chest Exam date and time: 02/24/2022 1:28 AM Age: 41 years old Clinical indication: Other: Palpitations; Additional info: Chest discomfort TECHNIQUE: Imaging protocol: XR of the chest. Views: 2 views. COMPARISON: CR XR CHEST PORTABLE 11/17/2021 10:13 AM FINDINGS: Lungs: Unremarkable. No consolidation. Pleural spaces: Unremarkable. No pleural effusion. No pneumothorax. Heart/Mediastinum: Unremarkable. No cardiomegaly. Bones/joints: Unremarkable. IMPRESSION: No acute cardiopulmonary abnormality.
--- NOTE | 2022-02-24 01:20 | HMH.EDGENADL ---
ED Disposition Clinical Impression: Chest pain Qualifiers: Chest pain type: unspecified Qualified Code(s): R07.9 - Chest pain, unspecified Disposition: Home, Self-Care Condition on Discharge: Good Additional Instructions: These continue to monitor your condition closely at home. If your condition worsens or any other concerns arise, please return to the emergency department for reassessment. Otherwise, please follow-up with your primary care physician after today's visit. Referrals: Ha Deras MD [Primary Care Provider] - - Critical Care Critical Care Time: No Attestation: On 02/24/22, the high probability of a clinically significant, sudden or life threatening deterioration of the following system(s) required my full and direct attention, intervention and personal management. The time I documented below is in addition to time spent performing reported procedures but includes the following listed in this critical care notation. Medical Decision Making - Medical Records Medical records reviewed: Yes: I reviewed the patient's medical records. - Felipe Inquiry Pt receiving controlled substance: No Vital Signs: 02/24/22 01:02 02/24/22 01:06 02/24/22 01:30 Temperature 98.0 F Temperature Source Oral Pulse Rate 100 H 89 Pulse Rate [Right Brachial] 106 H Respiratory Rate 18 Blood Pressure 173/101 H 170/86 H Blood Pressure [Right Arm] 173/101 H Blood Pressure Mean [Right Arm] 125 Blood Pressure Source [Right Arm] Automatic Cuff Blood Pressure Position [Right Arm] Sitting 02 Sat by Pulse Oximetry 99 98 98 Oxygen Delivery Method Room Air 02/24/22 02:00 02/24/22 02:31 02/24/22 03:08 Temperature Temperature Source Pulse Rate 95 H 86 76 Pulse Rate [Right Brachial] Respiratory Rate Blood Pressure 165/86 H 141/72 H 141/69 H Blood Pressure [Right Arm] Blood Pressure Mean [Right Arm] Blood Pressure Source [Right Arm] Blood Pressure Position [Right Arm] 02 Sat by Pulse Oximetry 97 96 98 Oxygen Delivery Method 02/24/22 03:33 02/24/22 04:01 Temperature Temperature Source Pulse Rate 78 82 Pulse Rate [Right Brachial] Respiratory Rate Blood Pressure 157/79 H 133/63 Blood Pressure [Right Arm] Blood Pressure Mean [Right Arm] Blood Pressure Source [Right Arm] Blood Pressure Position [Right Arm] 02 Sat by Pulse Oximetry 98 96 Oxygen Delivery Method - Lab Data Lab results reviewed: Yes: I reviewed the patient's lab results. Lab Results 02/24/22 01:17: WBC 16.5 H, RBC 4.44, Hgb 13.6, Hct 41.9, MCV 94.3, MCH 30.7, MCHC 32.5, RDW 13.0, Plt Count 291, MPV 8.6, Neut % (Auto) 79.8, Lymph % (Auto) 13.1, Leslie % (Auto) 3.2, Eos % (Auto) 1.9, Baso % (Auto) 2.0, Neut # (Auto) 13.1 H, Lymph # (Auto) 2.2, Leslie # (Auto) 0.5, Eos # (Auto) 0.3, Baso # (Auto) 0.3 H, Total Counted 100, Neutrophils % (Manual) 83 H, Lymphocytes % (Manual) 16, Monocytes % (Manual) 1 L, Platelet Estimate Normal 02/24/22 01:17: D-Dimer 0.51 H 02/24/22 01:17: Sodium 137, Potassium 3.9, Chloride 101, Carbon Dioxide 25, Anion Gap 14.9, BUN 14, Creatinine 0.60, Estimated Creat Clear 111, Estimated GFR 110, Est GFR ( Amer) 133, Glucose 216 H, Calcium 9.4, Troponin I < 0.01, NT-Pro-B Natriuret Pep 26.1 02/24/22 01:17: Total Bilirubin 0.2, Direct Bilirubin 0.0, Conjugated Bilirubin 0.0, Indirect Bilirubin 0.2, Unconjugated Bilirubin 0.4, AST 30, ALT 27, Alkaline Phosphatase 61, Total Protein 7.7, Albumin 4.2 02/24/22 03:30: Troponin I < 0.01 Result diagrams: 02/24/22 01:17 02/24/22 01:17 Orders (Tests/Meds): ED MEDICATIONS Generic Name Dose Route Start Last Admin Trade Name Freq PRN Reason Stop Dose Admin Sodium Chloride 10 ml 02/24/22 01:42 Sodium Chloride 0.9% 10ml Flush Syringe IV 03/26/22 01:41 NEEDED PRN Maintain IV Site Discontinued Medications Generic Name Dose Route Start Last Admin Trade Name Freq PRN Reason Stop Dose Admin Fausto Mcdonald
[2022-02-24 01:30] LABS: Basophils # 0.3 K/mm3 (0-0.2); Eosinophils # 0.3 K/mm3 (0.0-0.4); Eosinophils % 1.9 % (0.1-12.0); Hematocrit 41.9 % (37.0-47.0); Hemoglobin 13.6 g/dL (12.2-16.2); Lymphocytes # 2.2 K/mm3 (0.7-4.5); Lymphocytes % 13.1 % (10-50); Mean Corpuscular HGB Conc 32.5 g/dL (31.8-35.4); Mean Corpuscular Hemoglobin 30.7 pg (27.0-31.2); Mean Corpuscular Volume 94.3 fl (81-99); Mean Platelet Volume 8.6 fl (7.4-10.4); Monocytes # 0.5 K/mm3 (0.1-1.0); Monocytes % 3.2 % (1.7-9.3); Neutrophils # 13.1 K/mm3 (1.8-7.8); Neutrophils % 79.8 % (37.0-80.0); Platelet Count 291 K/mm3 (142-424); Red Blood Count 4.44 M/mm3 (4.20-5.40); White Blood Count 16.5 K/mm3 (4.8-10.8)
[2022-02-24 01:34] LABS: MANUAL DIFFERENTIAL MANUAL DIFFERENTIAL (MANUAL DIFF)
[2022-02-24 01:39] LABS: Anion Gap 14.9 mEq/L (5-15); Blood Urea Nitrogen 14 mg/dl (7-17); Calcium 9.4 mg/dl (8.4-10.2); Carbon Dioxide 25 mmol/L (22.0-30.0); Chloride 101 mmol/L (98-107); Creatinine Clearance Estimated 111 mL/min (50-200); Estimated Glomerular Filt Rate 110 ml/min (>60); GFR (African American) 133 ML/MIN (>60); Glucose 216 mg/dl (74-100); Potassium 3.9 mmoL/L (3.5-5.1); Sodium 137 mmol/L (136-145)
[2022-02-24 01:42] LABS: Alanine Aminotransferase 27 U/L (12-78); Albumin Level 4.2 g/dl (3.5-5.0); Alkaline Phosphatase 61 U/L (38-126); Aspartate Amino Transferase 30 U/L (14-36); Bilirubin,Indirect 0.2 mg/dL (0.0-0.9); Bilirubin,Total 0.2 mg/dl (0.2-1.3); Bilirubin,Unconjugated 0.4 mg/dL (0.0-1.1); Total Protein,Serum 7.7 g/dl (6.3-8.2)
[2022-02-24 01:44] LABS: D-Dimer 0.51 ug/mL (0.0-0.5)
[2022-02-24 02:40] LABS: NT Pro Brain Natriuretic Pep. 26.1 pg/mL (0-125)
[2022-02-24 02:44] LABS: Troponin I < 0.01 ng/ml (0.00-0.034)
[2022-02-24 03:28] LABS: Lymphocytes % 16 % (10-50); Monocytes % 1 % (2-9); Neutrophils % 83 % (42-76); Platelet Estimate Normal; Total Cells Counted 100
[2022-02-24 04:04] LABS: Troponin I < 0.01 ng/ml (0.00-0.034)
== END 2022-02-24 04:28 | disposition home or self-care (01) ==
PROVIDERS: Emergency Provider Emergency Medicine; PCP Internal Medicine
DX: R07.9 Chest pain, unspecified (principal); Z79.899 Other long term (current) drug therapy; F41.9 Anxiety disorder, unspecified; J44.9 Chronic obstructive pulmonary disease, unspecified; F32.A Depression, unspecified; I10 Essential (primary) hypertension; K82.9 Disease of gallbladder, unspecified; Z72.0 Tobacco use; F12.11 Cannabis abuse, in remission; Z80.9 Family history of malignant neoplasm, unspecified; Z83.3 Family history of diabetes mellitus; Z81.1 Family history of alcohol abuse and dependence; Z82.5 Family history of asthma and other chronic lower respiratory diseases
CPT/HCPCS: 71046; 80048; 80076; 83880; 84484; 85007; 85025; 85378; 93005; 99284

== ENCOUNTER 2023-03-27 23:06 | Emergency (ER) | payer OTHER, SELFPAY ==
[2023-03-27 23:07] VITALS: BP 210/115; PULSE 126; RESP 20; TEMP 36.8; O2SAT 97; BMI 43.2
--- NOTE | 2023-03-27 23:16 | HMH.EDGENADL ---
Discharge Plan Disposition Patient Disposition: Home, Self-Care Condition: Good Prescriptions Prescriptions: New ofloxacin 0.3 % drops 10 drp otic (ear) DAILY 7 Days Qty: 5 0RF No Action metformin 500 mg tablet 500 mg PO DAILY lorazepam 0.5 mg tablet 0.5 mg PO DAILY PRN simvastatin 5 mg tablet 5 mg PO DAILY amlodipine [Norvasc] 5 mg tablet 5 mg PO DAILY Qty: 90 3RF metoprolol succinate 200 mg tablet extended release 24 hr 200 mg PO DAILY Qty: 90 3RF albuterol sulfate 8.5 GM HFA aerosol inhaler 2 puffs IH Q6HP PRN (Reason: Shortness Of Breath) 30 Days Qty: 1 5RF Referrals Follow up/Referrals: Ha Deras MD [Primary Care Provider] - See instructions Clinical Impressions Clinical Impression: Foreign body in ear Instructions Patient Instructions: DI for Removal of Foreign Body From Ear Print Language Print Language: Ukrainian Discharge ED Provider: Dale Ramírez General Adult HPI General Chief complaint: Skin/Abscess/Foreign Body Stated complaint: Moth in ear Time Seen by Provider: 03/27/23 23:16 History of Present Illness HPI narrative: The patient has marked in the right ear complaint: Insect in the right ear Onset (ago): minute(s) (45) Severity: moderate Quality: burning Relieving factors: none Exacerbating factors: none Related Data Home Medications Medication Instructions Recorded Confirmed lorazepam 0.5 mg tablet 0.5 mg PO DAILY PRN 11/16/22 11/16/22 metformin 500 mg tablet 500 mg PO DAILY 11/16/22 11/16/22 simvastatin 5 mg tablet 5 mg PO DAILY 11/16/22 11/16/22 Previous Rx's Medication Instructions Recorded albuterol sulfate 90 mcg/actuation 2 puffs inhalation Q6HP PRN 09/21/21 aerosol inhaler Shortness Of Breath 30 days #1 ea amlodipine 5 mg tablet (Norvasc) 5 mg PO DAILY #90 tabs 06/19/22 metoprolol succinate 200 mg 200 mg PO DAILY Hypertension #90 06/19/22 tablet,extended release 24 hr tabs ofloxacin 0.3 % ear drops 10 drp otic (ear) DAILY 7 days #5 03/27/23 mL Allergies Allergy/AdvReac Type Severity Reaction Status Date / Time chapito Allergy Unknown Verified 11/16/22 15:40 PFSH PFSH Disclaimer: The information contained in this section may have been updated after the patient was seen, as this information can be updated by other users. Medical History (Updated 03/27/23 @ 23:32 by Dale Ramírez MD) Diabetes mellitus Palpitations Surgical History Delivery by section Status post cholecystectomy Social History Smoking Status: Current every day smoker tobacco type: cigarettes packs per day: 1 second hand exposure: No alcohol intake: never substance use type: marijuana current occupational status: unemployed Travel in the last 8 weeks: None household members: family housing: house current occupation: TEACHER current occupational exposures/hazards: No caffeine: No ROS Obtained: Yes Systems reviewed as appropriate & no additional complaints except as documented ENT Ears, Nose, Mouth, and Throat: Reports other (Ear fullness foreign body sensation) Physical Exam General General appearance: alert and in no apparent distress Eye Eye exam: Present EOMI ENT ENT exam: Present normal exam and mucous membranes moist Respiratory Respiratory exam: Absent respiratory distress Cardiovascular Cardiovascular exam: Present other (No edema) Neurological Exam Neurological exam: Present alert and oriented X3; Absent motor sensory deficit Psychiatric Psychiatric exam: Present normal affect and normal mood Skin Skin exam: Present warm and dry Medical Decision Making Felipe Inquiry Pt receiving controlled substance: No Vital Signs: 03/27/23 23:07 03/27/23 23:32 03/27/23 23:35 Temperature 98.3 F 98.3 F Temperature Source Oral Oral Pulse Rate 104 H Pulse Rate [Right] 126 H Respir
[2023-03-27 23:32] VITALS: BP 173/87; PULSE 104; RESP 16; TEMP 36.8; O2SAT 97
[2023-03-27 23:35] VITALS: BP 173/87; PULSE 85; RESP 19; TEMP 36.8; O2SAT 98
== END 2023-03-27 23:39 | disposition home or self-care (01) ==
PROVIDERS: Emergency Provider Emergency Medicine; PCP Internal Medicine
DX: T16.1XXA Foreign body in right ear, initial encounter (principal); E11.9 Type 2 diabetes mellitus without complications; F17.210 Nicotine dependence, cigarettes, uncomplicated
CPT/HCPCS: 99283; 99284

== ENCOUNTER 2023-04-05 13:32 | Emergency (ER) | payer OTHER, SELFPAY ==
[2023-04-05 13:33] VITALS: BP 156/87; PULSE 87; RESP 18; TEMP 36.9; O2SAT 95; BMI 43.2
--- NOTE | 2023-04-05 14:07 | EXP.UTC ---
Discharge Plan Disposition Patient Disposition: Home, Self-Care Condition: Good Prescriptions Prescriptions: No Action metformin 500 mg tablet 500 mg PO DAILY lorazepam 0.5 mg tablet 0.5 mg PO DAILY PRN simvastatin 5 mg tablet 5 mg PO DAILY amlodipine [Norvasc] 5 mg tablet 5 mg PO DAILY Qty: 90 3RF metoprolol succinate 200 mg tablet extended release 24 hr 200 mg PO DAILY Qty: 90 3RF albuterol sulfate 8.5 GM HFA aerosol inhaler 2 puffs IH Q6HP PRN (Reason: Shortness Of Breath) 30 Days Qty: 1 5RF ofloxacin 0.3 % drops 10 drp otic (ear) DAILY 7 Days Qty: 5 0RF Referrals Follow up/Referrals: Ha Deras MD [Primary Care Provider] - See instructions Activity Restrictions/Add. Instructions Additional Instructions/Restrictions: Drink plenty of fluids. Take tylenol or ibuprofen for pain or fever. Take the medications as directed. Follow up with your regular doctor. GO TO THE ER FOR ANY WORSENING SYMPTOMS Clinical Impressions Clinical Impression: Acute viral syndrome, Exposure to 2019 novel coronavirus Instructions Patient Instructions: Coronavirus Disease 2019, Preventing the Spread of Coronavirus Discharge Instructions Discharge ED Provider: Hayes Jiménez [facility] General Stated complaint: Congestion, drainage, headache Time Seen by Provider: 04/05/23 14:04 History of Present Illness Provider Complaint: She has been exposed to covid-19 by several of her family members having it. She denies symptoms at this time. Related Data Home Medications Medication Instructions Recorded Confirmed lorazepam 0.5 mg tablet 0.5 mg PO DAILY PRN 11/16/22 11/16/22 metformin 500 mg tablet 500 mg PO DAILY 11/16/22 11/16/22 simvastatin 5 mg tablet 5 mg PO DAILY 11/16/22 11/16/22 Previous Rx's Medication Instructions Recorded albuterol sulfate 90 mcg/actuation 2 puffs inhalation Q6HP PRN 09/21/21 aerosol inhaler Shortness Of Breath 30 days #1 ea amlodipine 5 mg tablet (Norvasc) 5 mg PO DAILY #90 tabs 06/19/22 metoprolol succinate 200 mg 200 mg PO DAILY Hypertension #90 06/19/22 tablet,extended release 24 hr tabs ofloxacin 0.3 % ear drops 10 drp otic (ear) DAILY 7 days #5 03/27/23 mL Allergies Allergy/AdvReac Type Severity Reaction Status Date / Time chapito Allergy Unknown Verified 11/16/22 15:40 [facility] Disclaimer: The information contained in this section may have been updated after the patient was seen, as this information can be updated by other users. Medical History Diabetes mellitus Palpitations Surgical History Delivery by section Status post cholecystectomy Social History Smoking Status: Current every day smoker tobacco type: cigarettes packs per day: 1 second hand exposure: No alcohol intake: never substance use type: marijuana current occupational status: unemployed Travel in the last 8 weeks: None household members: family housing: house current occupation: TEACHER current occupational exposures/hazards: No caffeine: No ROS Obtained: Yes All systems reviewed & no additional complaints except as documented Constitutional Constitutional: Denies chills and Denies fever(s) Eyes Eyes: Denies eye discharge ENT Ears, Nose, Mouth, and Throat: Denies dizziness, Denies otalgia and Denies sore throat Cardiovascular Cardiovascular: Denies chest pain Respiratory Respiratory: Denies shortness of breath, Denies chest congestion, Denies cough, Denies stridor and Denies wheezing Gastrointestinal Gastrointestingal: Denies nausea or vomiting Musculoskeletal Musculoskeletal: Reports system reviewed and no additional complaints, except as documented and Denies arthralgias Integumentary/Breasts Skin/Breast: Denies rash Neurologic Neurologic: Denies dizziness and D
[2023-04-05 14:57] VITALS: BP 156/87; PULSE 87; RESP 18; TEMP 36.9; O2SAT 95
== END 2023-04-05 14:58 | disposition home or self-care (01) ==
PROVIDERS: Emergency Provider Nurse Practitioner Family; PCP Internal Medicine
DX: U07.1 COVID-19 (principal); E11.9 Type 2 diabetes mellitus without complications; F17.210 Nicotine dependence, cigarettes, uncomplicated; Z79.84 Long term (current) use of oral hypoglycemic drugs
CPT/HCPCS: 99212; 99213; G0463